=== PATIENT | female | born 1930 | race Caucasian/White ===

== ENCOUNTER 2018-11-27 04:35 | Inpatient (IN) | payer MEDICARE, BC ==
[2018-11-27] MEDS ORDERED: Aspirin 81 MG Tab.Chew PO ONE (05:18)
--- NOTE | 2018-11-27 05:49 | EDM.PDOC ---
ED HPI GENERAL MEDICAL PROBLEM - General Chief Complaint: Chest Pain Stated Complaint: [facility] Time Seen by Provider: 11/27/18 04:36 - History of Present Illness INITIAL COMMENTS - FREE TEXT/NARRATIVE: 88-year-old female brought in by EMS with chest pain. This started earlier this evening exact onset time is uncertain as the patient is pretty advanced dementia. She was found to be very hypertensive by EMS with systolics over 200 she was given Ativan is exhibiting a lytic her chest pain got better and her blood pressure started to come down nausea improved and she quickly came to be her normal self again. Apparently she is having more episodes like this about a week ago she had a similar episode she had an extensive workup done in [place] during that workup discovered that her lung cancer and come back. 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 The patient lives independently but this is not going well and the family is actively pursuing assisted placement and care. - Related Data Allergies Allergy/AdvReac Type Severity Reaction Status Date / Time aspirin Allergy Cannot Verified 11/27/18 04:42 Remember Cephalosporins Allergy Hives Verified 11/27/18 04:42 Home Meds: Home Meds Apixaban [Eliquis] 5 mg PO DAILY 11/27/18 [History] Atenolol [Tenormin] 25 mg PO DAILY 11/27/18 [History] Bumetanide 1 mg PO DAILY 11/27/18 [History] Lisinopril 10 mg PO DAILY 11/27/18 [History] Past Medical History Cardiovascular History: Reports: Afib, Hypertension, [place] Respiratory History: Reports: Other (See Below) Other Respiratory History: Lung CA Psychiatric History: Reports: Dementia - Past Surgical History Cardiovascular Surgical History: Reports: Coronary Artery Stent Social & Family History - Tobacco Use Smoking Status *Q: Never Smoker - Caffeine Use Caffeine Use: Reports: None - Recreational Drug Use Recreational Drug Use: No ED ROS GENERAL - Review of Systems Review Of Systems: See Below Constitutional: Reports: No Symptoms HEENT: Reports: No Symptoms Respiratory: Reports: Other (She needs oxygen more frequently) Cardiovascular: Reports: Chest Pain (Chest pain seemed to improve after being treated for anxiety) GI/Abdominal: Reports: No Symptoms : Reports: No Symptoms ED EXAM, GENERAL - Physical Exam Exam: See Below Exam Limited By: No Limitations General Appearance: Alert, Other (She can answer some questions but indeed has some advanced dementia) Eye Exam: Bilateral Eye: EOMI, Normal Inspection Ears: Normal External Exam, Normal Canal, Hearing Grossly Normal, Normal TMs Throat/Mouth: Normal Inspection, Normal Lips, Normal Teeth, Normal Gums, Normal Oropharynx, Normal Voice, No Airway Compromise Head: Atraumatic Neck: Normal Inspection, Supple, Non-Tender, Full Range of Motion. No: Lymphadenopathy (L), Lymphadenopathy (R) Respiratory/Chest: No Respiratory Distress, Lungs Clear, Normal Breath Sounds Cardiovascular: Normal Peripheral Pulses, Regular Rate, Rhythm, No Edema GI/Abdominal: Normal Bowel Sounds, Soft, Non-Tender Back Exam: Normal Inspection. No: CVA Tenderness (L), CVA Tenderness (R) Extremities: Normal Inspection, Other (Get bilateral pitting edema) Neurological: Alert EKG INTERPRETATION EKG Date: 11/27/18 Rhythm: Other (She has frequent PACs otherwise in sinus rhythm) [place]: Normal P-Wave: Present QRS: LBBB ST-T: Other (Expected disconcordant changes) Comparison: Change From Previous EKG (Comparison tracings found in our records include stress test traces from 2014 since that time she has gone from what looks like interventricular conduction delay to left bundle branch block) Course - Vital Signs Last Recorded V/S: Last Vital Signs Temp 35.9 C 11/27/18 04:36 Pulse 71 11/27/18 04:36 Resp 19 11/27/18 04:36 BP 189/88 H 11/27/18 04:36 Pulse Ox 92 L 11/27/18 04:36 - Orders/Labs/Meds Orders: Active Orders 24 hr Category Date Time Status EKG Documentation Completion [RC] STAT Care 11/27/18 04:36 Active Chest 1V Frontal [CR] Stat Exams 11/27/18 04:36 Taken URINALYSIS W/MICROSCOPIC [UA W/MICROSCOPIC] [URIN] Stat Lab 11/27/18 04:36 Ordered Labs: Laboratory Tests 11/27/18 11/27/18 11/27/18 Range/Units 04:40 04:40 04:40 WBC 6.60 (3.98-10.04) K/mm3 RBC 4.69 (3.98-5.22) M/mm3 Hgb 13.6 (11.2-15.7) gm/L Hct 42.8 (34.1-44.9) % MCV 91.3 (79.4-94.8) fl MCH 29.0 (25.6-32.2) pg MCHC 31.8 L (32.2-35.5) g/dl RDW Std Deviation 49.5 H (36.4-46.3) fL Plt Count 190 (182-369) K/mm3 MPV 12.0 (9.4-12.3) fl Neutrophils % (Manual) 78 H (40-60) % Band Neutrophils % 0 (0-10) % Lymphocytes % (Manual) 11 L (20-40) % Atypical Lymphs % 0 % Monocytes % (Manual) 4 (2-10) % Eosinophils % (Manual) 5 (0.7-5.8) % Basophils % (Manual) 2 H (0.1-1.2) Platelet Estimate Adequate Plt Morphology Comment Normal Hypochromasia 1+ slight Anisocytosis 1+ slight Ovalocytes 1+ slight RBC Morph Comment Not Reportable PT 11.7 (9.5-12.1) SECONDS INR 1.07 APTT 25 (24-31) SECONDS Sodium 142 (136-145) mEq/L Potassium 3.0 L (3.5-5.1) mEq/L Chloride 102 (98-107) mEq/L Carbon Dioxide 29 (21-32) mEq/L Anion Gap 14.0 (5-15) BUN 19 H (7-18) mg/dL Creatinine 1.2 H (0.55-1.02) mg/dL Est Cr Clr Drug Dosing 28.60 mL/min Estimated GFR (MDRD) 42 (>60) mL/min BUN/Creatinine Ratio 15.8 (14-18) Glucose 156 H (83-115) mg/dL Calcium 8.3 L (8.5-10.1) mg/dL Total Bilirubin 0.6 (0.2-1.0) mg/dL AST 29 (15-37) U/L ALT 53 (14-59) U/L Alkaline Phosphatase 157 H (46-116) U/L Troponin I 0.031 (0.00-0.056) ng/mL Total Protein 6.6 (6.4-8.2) g/dl Albumin 3.5 (3.4-5.0) g/dl Globulin 3.1 gm/dL Albumin/Globulin Ratio 1.1 (1-2) Meds: Medications Discontinued Medications Generic Name Dose Route Start Last Admin Trade Name Marta PRN Reason Stop Dose Admin Aspirin 324 mg 11/27/18 05:18 11/27/18 05:23 Aspirin PO 11/27/18 05:19 Not Given ONETIME ONE - Re-Assessments/Exams Free Text/Narrative Re-Assessment/Exam: 11/27/18 05:36 Discussion with family members about care plan she is DNR it looks like her lung cancer is back they do not wish to pursue treatment for this. If she has something going on with her heart they do not wish to pursue any aggressive management for this, such as going to [facility] or having any invasive procedures done. Primary efforts should be to keep her comfortable if something can be treated medically with meds that would be okay laboratory evaluation is nondiagnostic thus her her troponin is 0.31 chest x-ray, portable, shows upper segmental mass in the right lower lobe left shows small to moderate effusion she has some cardiomegaly noted. With her initial chief complaint involving chest pain she was not given aspirin due to aspirin allergies. 11/27/18 06:42 The cause of her chest pain is not clearly identifiable. We don't have complete center records on her she had a stress test done here 2013 compared to those elements she's now developed what looks like a left bundle branch block. She's been having these intermittent episodes of chest discomfort perhaps related to anxiety but this isn't certain and her blood pressure was very escalated when EMS picked her up this morning the patient is having worsening dementia and she lives alone she has good family support however none of her family members live close to her. Discussed situation with Dr. Cohen patient will be brought in for further evaluation. Departure - Departure Time of Disposition: 06:51 Disposition: Admitted As Inpatient 65 Clinical Impression: Chest pain, HTN (hypertension), Dementia Referrals: PCP,Not In Area [Primary Care Provider] - - My Orders Last 24 Hours: My Active Orders 11/27/18 04:36 EKG Documentation Completion [RC] STAT Chest 1V Frontal [CR] Stat URINALYSIS W/MICROSCOPIC [UA W/MICROSCOPIC] [URIN] Stat - Assessment/Plan Last 24 Hours: My Active Orders 11/27/18 04:36 EKG Documentation Completion [RC] STAT Chest 1V Frontal [CR] Stat URINALYSIS W/MICROSCOPIC [UA W/MICROSCOPIC] [URIN] Stat
[2018-11-27] MEDS: Potassium Chloride 10 MEQ in Premix Bag 1 BAG IV SCH ×4 (08:04→11:42)
[2018-11-27] MEDS ORDERED: Atenolol 25 MG Tab PO SCH (09:30)
[2018-11-27] MEDS ORDERED: Lisinopril 10 MG Tab PO SCH (09:30)
--- NOTE | 2018-11-27 10:41 | PCM.HP ---
H&P History of Present Illness - General Date of Service: 11/27/18 Admit Problem/Dx: Admission Diagnosis/Problem Admission Diagnosis/Problem Chest pain Source of Information: Patient, Family, Provider - History of Present Illness Initial Comments - Free Text/Narative: This 88-year-old female admitted through the emergency room and brought to the emergency room by EMS. Last night she called her daughter and told her that she was feeling sick and that she had vomited. Patient was having anxiety and sick feeling in her head. EMS was called and she was found to be hypertensive with systolic over 200. She was complaining of chest discomfort at that time and anxiety was thought to be part of the cause and she was given Ativan by EMS in route. This did help her chest pain and her blood pressure improved somewhat. On arrival to the emergency room workup was performed and troponins were negative. Apparently she had a similar episode a couple of weeks ago had a full cardiac workup. She has had episodes of low O2, but unknown how low. Patient has a history of lung cancer and recently had a CT angiogram performed. It appears her lung cancer has recurred. Patient does not want anything done about recurrence of her lung cancer and does not want any aggressive treatment for heart disease. She has a history of one stent 20 years ago. Also, her primary care provider has been encouraging family to look into long-term care for her. On she was going to move to a senior care in [place]. Because of the patient's worsening anxiety he did recently increase her lorazepam from 0.25 mg twice a day to 3 times a day. The evening pills seem to cause her to fall, therefore family stopped the evening pill and she has had no more falls since then. Here she was found to have a low potassium of 3.0. Patient has a history of paroxysmal A. fib, hypertension, congestive heart failure, anxiety, and dementia. - Related Data Allergies/Adverse Reactions: Allergies Allergy/AdvReac Type Severity Reaction Status Date / Time Cephalosporins Allergy Hives Verified 11/27/18 08:10 Home Medications: Home Meds Acetaminophen/traMADol [Ultracet] 1 tab PO BID 11/27/18 [History] Apixaban [Eliquis] 2.5 mg PO BID 11/27/18 [History] Aspirin 81 mg PO BEDTIME 11/27/18 [History] Atenolol [Tenormin] 50 mg PO DAILY 11/27/18 [History] Bumetanide 0.5 mg PO DAILY 11/27/18 [History] [place]/Mag Cit/Pass Flw/Valer [Myocalm] 1 tab PO BEDTIME 11/27/18 [History] LORazepam 0.25 mg PO TID 11/27/18 [History] Lisinopril 40 mg PO BEDTIME 11/27/18 [History] Loratadine 10 mg PO DAILY PRN 11/27/18 [History] Magnesium 100 mg PO DAILY 11/27/18 [History] Non-Formulary Medication [NF Drug] 2,181 mg PO TID 11/27/18 [History] Omeprazole 20 mg PO DAILY 11/27/18 [History] Sertraline HCl 100 mg PO DAILY 11/27/18 [History] Triamcinolone Acetonide [Nasacort] 1 spray YESENIA BID 11/27/18 [History] Triamcinolone Acetonide [Triamcinolone Acetonide 0.1% Crm] 1 applic TOP BID [History] Past Medical History Cardiovascular History: Reports: Afib, Hypertension, [place] Other Cardiovascular History: cannot update completely-family unaware of past medical hx Respiratory History: Reports: Other (See Below) Other Respiratory History: Lung CA. --patient confused/disoriented. family unaware of medical hx Psychiatric History: Reports: Dementia Other Psychiatric History: fam states patient has dementia - Past Surgical History Cardiovascular Surgical History: Reports: Coronary Artery Stent Social & Family History - Family History Family Medical History: Noncontributory - Tobacco Use Smoking Status *Q: Never Smoker - Caffeine Use Caffeine Use: Reports: Soda - Recreational Drug Use Recreational Drug Use: No H&P Review of Systems - Review of Systems: Review Of Systems: ROS reveals no pertinent complaints other than HPI. Exam - Exam Exam: See Below - Vital Signs Vital Signs: Last Vital Signs Temp 97.9 F 11/27/18 07:43 Pulse 73 11/27/18 07:43 Resp 20 11/27/18 07:43 BP 144/92 H 11/27/18 09:43 Pulse Ox 89 L 11/27/18 07:43 Weight: 165 lb 3.2 oz - Exam Quality Assessment: No: Supplemental Oxygen General: No: Alert, Oriented HEENT: Conjunctiva Clear, Mucosa Moist & [place], Posterior Pharynx Clear Neck: Supple, Trachea Midline Lungs: Normal Respiratory Effort, Rales Cardiovascular: Regular Rate, Regular Rhythm GI/Abdominal Exam: Normal Bowel Sounds, Soft, Non-Tender, No Organomegaly, No Distention Extremities: Non-Tender, Pedal Edema. No: Increased Warmth Skin: Warm, Intact Neuro Extensive - Mental Status: Disorientation to Place, Disorientation to Time , Memory Loss-Recent Events, Slow Response to Commands. No: Disorientation to Person - Patient Data Lab Results Last 24 hrs: Laboratory Results - last 24 hr 11/27/18 11/27/18 11/27/18 Range/Units 04:40 04:40 04:40 WBC 6.60 (3.98-10.04) K/mm3 RBC 4.69 (3.98-5.22) M/mm3 Hgb 13.6 (11.2-15.7) gm/L Hct 42.8 (34.1-44.9) % MCV 91.3 (79.4-94.8) fl MCH 29.0 (25.6-32.2) pg MCHC 31.8 L (32.2-35.5) g/dl RDW Std Deviation 49.5 H (36.4-46.3) fL Plt Count 190 (182-369) K/mm3 MPV 12.0 (9.4-12.3) fl Neutrophils % (Manual) 78 H (40-60) % Band Neutrophils % 0 (0-10) % Lymphocytes % (Manual) 11 L (20-40) % Atypical Lymphs % 0 % Monocytes % (Manual) 4 (2-10) % Eosinophils % (Manual) 5 (0.7-5.8) % Basophils % (Manual) 2 H (0.1-1.2) Platelet Estimate Adequate Plt Morphology Comment Normal Hypochromasia 1+ slight Anisocytosis 1+ slight Ovalocytes 1+ slight RBC Morph Comment Not Reportable PT 11.7 (9.5-12.1) SECONDS INR 1.07 APTT 25 (24-31) SECONDS Sodium 142 (136-145) mEq/L Potassium 3.0 L (3.5-5.1) mEq/L Chloride 102 (98-107) mEq/L Carbon Dioxide 29 (21-32) mEq/L Anion Gap 14.0 (5-15) BUN 19 H (7-18) mg/dL Creatinine 1.2 H (0.55-1.02) mg/dL Est Cr Clr Drug Dosing 28.60 mL/min Estimated GFR (MDRD) 42 (>60) mL/min BUN/Creatinine Ratio 15.8 (14-18) Glucose 156 H (83-115) mg/dL Calcium 8.3 L (8.5-10.1) mg/dL Total Bilirubin 0.6 (0.2-1.0) mg/dL AST 29 (15-37) U/L ALT 53 (14-59) U/L Alkaline Phosphatase 157 H (46-116) U/L Troponin I 0.031 (0.00-0.056) ng/mL Total Protein 6.6 (6.4-8.2) g/dl Albumin 3.5 (3.4-5.0) g/dl Globulin 3.1 gm/dL Albumin/Globulin Ratio 1.1 (1-2) Urine Color (Yellow) Urine Appearance (Clear) Urine pH (5.0-8.0) Ur Specific [place] (1.005-1.030) Urine Protein (Negative) Urine Glucose (UA) (Negative) Urine Ketones (Negative) Urine Occult Blood (Negative) Urine Nitrite (Negative) Urine Bilirubin (Negative) Urine Urobilinogen (0.2-1.0) Ur Leukocyte Esterase (Negative) Urine RBC (0-5) /hpf Urine WBC (0-5) /hpf Ur Epithelial Cells (0-5) /hpf Urine Bacteria (FEW) /hpf Urine Mucus (FEW) /hpf 11/27/18 Range/Units 05:38 WBC (3.98-10.04) K/mm3 RBC (3.98-5.22) M/mm3 Hgb (11.2-15.7) gm/L Hct (34.1-44.9) % MCV (79.4-94.8) fl MCH (25.6-32.2) pg MCHC (32.2-35.5) g/dl RDW Std Deviation (36.4-46.3) fL Plt Count (182-369) K/mm3 MPV (9.4-12.3) fl Neutrophils % (Manual) (40-60) % Band Neutrophils % (0-10) % Lymphocytes % (Manual) (20-40) % Atypical Lymphs % % Monocytes % (Manual) (2-10) % Eosinophils % (Manual) (0.7-5.8) % Basophils % (Manual) (0.1-1.2) Platelet Estimate Plt Morphology Comment Hypochromasia Anisocytosis Ovalocytes RBC Morph Comment PT (9.5-12.1) SECONDS INR APTT (24-31) SECONDS Sodium (136-145) mEq/L Potassium (3.5-5.1) mEq/L Chloride (98-107) mEq/L Carbon Dioxide (21-32) mEq/L Anion Gap (5-15) BUN (7-18) mg/dL Creatinine (0.55-1.02) mg/dL Est Cr Clr Drug Dosing mL/min Estimated GFR (MDRD) (>60) mL/min BUN/Creatinine Ratio (14-18) Glucose (83-115) mg/dL Calcium (8.5-10.1) mg/dL Total Bilirubin (0.2-1.0) mg/dL AST (15-37) U/L ALT (14-59) U/L Alkaline Phosphatase (46-116) U/L Troponin I (0.00-0.056) ng/mL Total Protein (6.4-8.2) g/dl Albumin (3.4-5.0) g/dl Globulin gm/dL Albumin/Globulin Ratio (1-2) Urine Color Yellow (Yellow) Urine Appearance Clear (Clear) Urine pH 7.0 (5.0-8.0) Ur Specific [place] 1.020 (1.005-1.030) Urine Protein 2+ H (Negative) Urine Glucose (UA) Trace H (Negative) Urine Ketones Trace H (Negative) Urine Occult Blood Trace-intact H (Negative) Urine Nitrite Negative (Negative) Urine Bilirubin Negative (Negative) Urine Urobilinogen 0.2 (0.2-1.0) Ur Leukocyte Esterase Negative (Negative) Urine RBC 0-5 (0-5) /hpf Urine WBC 0-5 (0-5) /hpf Ur Epithelial Cells Not seen (0-5) /hpf Urine Bacteria Not seen (FEW) /hpf Urine Mucus Not seen (FEW) /hpf Result Diagrams: 11/27/18 04:40 11/27/18 04:40 - Problem List (1) CHF (congestive heart failure) SNOMED Code(s): 61176113 ICD Code: I50.9 - HEART FAILURE, UNSPECIFIED Status: Acute Current Visit : Yes (2) Hypokalemia SNOMED Code(s): 91664348 ICD Code: E87.6 - HYPOKALEMIA Status: Acute Current Visit: Yes (3) Anxiety SNOMED Code(s): 11538745 ICD Code: F41.9 - ANXIETY DISORDER, UNSPECIFIED Status: Acute Current Visit: Yes (4) Dementia SNOMED Code(s): 72977533 ICD Code: F03.90 - UNSPECIFIED DEMENTIA WITHOUT BEHAVIORAL DISTURBANCE Status: Acute Current Visit: Yes (5) HTN (hypertension) SNOMED Code(s): 05943676 ICD Code: I10 - ESSENTIAL (PRIMARY) HYPERTENSION Status: Acute Current Visit: Yes Problem List Initiated/Reviewed/Updated: Yes Orders Last 24hrs: Active Orders 24 hr Category Date Time Status Admission Status [Patient Status] [ADT] Routine ADT 11/27/18 06:48 Active EKG Documentation Completion [RC] STAT Care 11/27/18 04:36 Active Oxygen Therapy [RC] PRN Care 11/27/18 10:28 Ordered Up With Assistance [RC] ASDIRECTED Care 11/27/18 09:34 Active VTE/DVT Education [RC] PER UNIT ROUTINE Care 11/27/18 10:28 Ordered Vital Signs [RC] Q8H Care 11/27/18 10:28 Ordered Consult to Case Management/Rn Surgical [CONS] Cons 11/27/18 10:28 Ordered Routine OT Evaluation and Treatment [CONS] Routine Cons 11/27/18 10:32 Ordered PT Evaluation and Treatment [CONS] Routine Cons 11/27/18 10:32 Ordered Heart Healthy Diet [DIET] Diet 11/27/18 Lunch Active Chest 1V Frontal [CR] Stat Exams 11/27/18 04:36 Taken CBC WITH AUTO DIFF [HEME] AM Lab 11/28/18 05:11 Ordered COMPREHENSIVE METABOLIC PN,CMP [CHEM] AM Lab 11/28/18 05:11 Ordered MAGNESIUM [CHEM] AM Lab 11/28/18 05:11 Ordered Acetaminophen [Tylenol] Med 11/27/18 10:28 Ordered 650 mg PO Q4H PRN Apixaban [Eliquis] Med 11/27/18 21:00 Ordered 2.5 mg PO BID Aspirin Med 11/27/18 21:00 Ordered 81 mg PO BEDTIME Atenolol [Tenormin] Med 11/27/18 10:30 Ordered 50 mg PO DAILY Bumetanide [Bumex] Med 11/28/18 09:00 Ordered 0.5 mg PO DAILY LORazepam [Ativan] Med 11/27/18 10:30 Ordered 0.25 mg PO BID Lisinopril [Prinivil] Med 11/27/18 09:30 Active 10 mg PO DAILY Loratadine [Claritin] Med 11/27/18 10:16 Ordered 10 mg PO DAILY PRN Omeprazole [Omeprazole] Med 11/28/18 09:00 Ordered 20 mg PO DAILY Potassium Chloride [KCl 10 MEQ in Water 100 ML] 10 meq Med 11/27/18 07:30 Active Premix Bag 1 bag IV Q1H Potassium Chloride [Klor-Con 10] Med 11/27/18 21:00 Ordered 10 meq PO BEDTIME Sertraline HCl Med 11/28/18 09:00 Ordered 100 mg PO DAILY Triamcinolone Acetonide [Nasacort] Med 11/27/18 21:00 Ordered 1 spray YESENIA BID Triamcinolone Acetonide [Triamcinolone Acetonide 0.1% Med 11/27/18 21:00 Ordered Crm] 1 applic TOP BID Resuscitation Status Routine Resus Stat 11/27/18 08:13 Ordered Medication Orders Acetaminophen (Tylenol) 650 mg PO Q4H PRN PRN Reason: Pain (Mild 1-3)/fever Apixaban (Eliquis) 2.5 mg PO BID [facility] Aspirin (Aspirin) 81 mg PO BEDTIME PARAG Atenolol (Tenormin) 50 mg PO DAILY PARAG Bumetanide (Bumex) 0.5 mg PO DAILY PARAG Potassium Chloride 10 meq/ (Premix) 100 mls @ 100 mls/hr IV Q1H PARAG Stop: 11/27/18 11:29 Last Admin: 11/27/18 10:22 Dose: 100 mls/hr Infusion: 11/27/18 10:20 Dose: 100 mls/hr Admin: 11/27/18 09:20 Dose: 100 mls/hr Infusion: 11/27/18 09:04 Dose: 100 mls/hr Admin: 11/27/18 08:04 Dose: 100 mls/hr Lisinopril (Prinivil) 10 mg PO DAILY [facility] Last Admin: 11/27/18 09:43 Dose: 10 mg Loratadine (Claritin) 10 mg PO DAILY PRN PRN Reason: chronic rhinitis Lorazepam (Ativan) 0.25 mg PO BID@0800,1200 [facility] Non-Formulary Medication (Triamcinolone Acetonide [Nasacort]) 1 spray YESENIA BID [facility] Pantoprazole Sodium (Protonix) 40 mg PO DAILY@0700 [facility] Potassium Chloride (Klor-Con 10) 10 meq PO BEDTIME [facility] Sertraline HCl (Zoloft) 100 mg PO DAILY [facility] Triamcinolone Acetonide (Triamcinolone Acetonide 0.1% Crm) 0 gm TOP BID [facility] Assessment/Plan Comment:: Hypertensive emergency * Appears patient had a significantly elevated blood pressure on arrival of EMS that may have been causing some altered mental status. * There is hard to determine because of the Ativan her current mental status. We will continue to follow closely. * Family does not want aggressive management at this time, therefore we'll hold off on MRI of the brain. * Patient has no focal deficits and is able to swallow pills and clear liquids. * Restart home meds and even before her home meds were given her blood pressure was down to 140 systolic Congestive heart failure * Ejection fraction from myocardial perfusion scan in 2013 was 30%. * Continue Bumex, lisinopril, and atenolol. Dementia * Patient clearly has worsening of her dementia. * She will need senior care placement. * Counseled the family that she may have difficulty in the evening with sundowning. Anxiety * Continue sertraline 100 mg a day. * Continue lorazepam 0.25 mg at breakfast and lunch Paroxysmal A. fib * Continue beta carmen and Eliquis * ECG shows normal sinus rhythm currently PT, OT, and discharge planning Length of stay anticipated 3 days CODE STATUS: DNR/DNI VTE prophylaxis with Eliquis
[2018-11-27] MEDS: LORazepam 0.5 MG Tab PO SCH (11:21)
[2018-11-27] MEDS: Atenolol 50 MG Tab PO SCH (11:31)
[2018-11-27] MEDS: Acetaminophen 325 MG Tab PO PRN ×3 (12:23→21:11)
[2018-11-27] MEDS: Loratadine 10 MG Tab PO PRN (12:24)
[2018-11-27] MEDS: Apixaban 5 MG Tab PO SCH (21:09)
[2018-11-27] MEDS: Potassium Chloride 10 MEQ Tab.ER PO SCH (21:10)
[2018-11-27] MEDS: Fluticasone Propionate Nasal Spray 16 GM Bottle NAS SCH (21:10)
[2018-11-27] MEDS: Melatonin 3 MG Tab PO SCH (21:10)
[2018-11-27] MEDS ORDERED: Lisinopril 10 MG Tab PO ONE (21:10)
[2018-11-27] MEDS: Aspirin 81 MG Tab.Chew PO SCH (21:11)
[2018-11-27] MEDS: Triamcinolone Acetonide 0.1% Crm 15 GM Tube TOP SCH (21:15)
[2018-11-28] MEDS: Pantoprazole 40 MG Tab.CR PO SCH ×2 (05:45→06:20)
--- NOTE | 2018-11-28 07:01 | PCM.PN ---
- General Info Date of Service: 11/28/18 Admission Dx/Problem (Free Text): Admission Diagnosis/Problem Admission Diagnosis/Problem Chest pain Subjective Update: 11/28/18: In to see Gunjan. She is lying in bed. She reports she feels pretty good. She is pleasantly confused. She is onboard with the plan for discharge to [place] and does tell me this when i was asking about needing more help at home. Her magnesium was low and was supplemented. No other nursing or patient concerns. Functional Status: Reports: Pain Controlled, Tolerating Diet, Ambulating, Urinating. Denies: New Symptoms - Review of Systems General: Reports: No Symptoms. Denies: Fever, Weakness, Fatigue, Malaise HEENT: Reports: No Symptoms. Denies: Headaches, Sore Throat Pulmonary: Reports: No Symptoms. Denies: Shortness of Breath, Pleuritic Chest Pain, Cough, Hemoptysis, Wheezing Cardiovascular: Reports: No Symptoms, Edema. Denies: Chest Pain, Palpitations, Dyspnea on Exertion Gastrointestinal: Reports: No Symptoms. Denies: Abdominal Pain, Constipation, Diarrhea, Nausea, Vomiting Genitourinary: Reports: No Symptoms. Denies: Pain Musculoskeletal: Reports: No Symptoms Skin: Reports: No Symptoms Neurological: Reports: Confusion (baseline ) Psychiatric: Reports: No Symptoms - Patient Data Vitals - Most Recent: Last Vital Signs Temp 98.2 F 11/28/18 05:48 Pulse 59 L 11/28/18 05:48 Resp 12 11/28/18 05:48 BP 177/83 H 11/28/18 05:48 Pulse Ox 95 11/28/18 05:48 Weight - Most Recent: 166 lb 1.6 oz I&O - Last 24 Hours: Intake & Output 11/27/18 11/28/18 11/28/18 22:59 06:59 14:59 Intake Total 1200 500 Output Total 275 475 Balance 925 25 Lab Results Last 24 Hours: Laboratory Results - last 24 hr 11/28/18 11/28/18 Range/Units 04:50 04:50 WBC 5.37 (3.98-10.04) K/mm3 RBC 4.34 (3.98-5.22) M/mm3 Hgb 12.7 (11.2-15.7) gm/L Hct 39.5 (34.1-44.9) % MCV 91.0 (79.4-94.8) fl MCH 29.3 (25.6-32.2) pg MCHC 32.2 (32.2-35.5) g/dl RDW Std Deviation 49.2 H (36.4-46.3) fL Plt Count 196 (182-369) K/mm3 MPV 12.2 (9.4-12.3) fl Neut % (Auto) 62.7 (34.0-71.1) % Lymph % (Auto) 25.5 (19.3-51.7) % Saline % (Auto) 9.9 (4.7-12.5) % Eos % (Auto) 1.5 (0.7-5.8) Baso % (Auto) 0.2 (0.1-1.2) % Neut # (Auto) 3.37 (1.56-6.13) K/mm3 Lymph # (Auto) 1.37 (1.18-3.74) K/mm3 Saline # (Auto) 0.53 H (0.24-0.36) K/mm3 Eos # (Auto) 0.08 (0.04-0.36) K/mm3 Baso # (Auto) 0.01 (0.01-0.08) K/mm3 Sodium 140 (136-145) mEq/L Potassium 3.5 (3.5-5.1) mEq/L Chloride 103 (98-107) mEq/L Carbon Dioxide 28 (21-32) mEq/L Anion Gap 12.5 (5-15) BUN 22 H (7-18) mg/dL Creatinine 1.1 H (0.55-1.02) mg/dL Est Cr Clr Drug Dosing 24.90 mL/min Estimated GFR (MDRD) 47 (>60) mL/min BUN/Creatinine Ratio 20.0 H (14-18) Glucose 92 (83-115) mg/dL Calcium 8.1 L (8.5-10.1) mg/dL Magnesium 1.5 L (1.8-2.4) mg/dl Total Bilirubin 0.7 (0.2-1.0) mg/dL AST 35 (15-37) U/L ALT 55 (14-59) U/L Alkaline Phosphatase 133 H (46-116) U/L Total Protein 5.5 L (6.4-8.2) g/dl Albumin 2.9 L (3.4-5.0) g/dl Globulin 2.6 gm/dL Albumin/Globulin Ratio 1.1 (1-2) Med Orders - Current: Current Medications Acetaminophen (Tylenol) 650 mg PO Q4H PRN PRN Reason: Pain (Mild 1-3)/fever Last Admin: 11/27/18 21:11 Dose: 650 mg Apixaban (Eliquis) 2.5 mg PO BID [facility] Last Admin: 11/27/18 21:09 Dose: 2.5 mg Aspirin (Aspirin) 81 mg PO BEDTIME [facility] Last Admin: 11/27/18 21:11 Dose: 81 mg Atenolol (Tenormin) 50 mg PO DAILY [facility] Last Admin: 11/27/18 11:31 Dose: 50 mg Bumetanide (Bumex) 0.5 mg PO DAILY [facility] Fluticasone Propionate (Flonase) 0 gm [place]ENIA BID [facility] Last Admin: 11/27/18 21:10 Dose: Not Given Lisinopril (Prinivil) 20 mg PO DAILY [facility] Loratadine (Claritin) 10 mg PO DAILY PRN PRN Reason: chronic rhinitis Last Admin: 11/27/18 12:24 Dose: 10 mg Lorazepam (Ativan) 0.25 mg PO BID@0800,1200 [facility] Last Admin: 11/27/18 11:21 Dose: Not Given Melatonin (Melatonin) 3 mg PO BEDTIME [facility] Last Admin: 11/27/18 21:10 Dose: 3 mg Pantoprazole Sodium (Protonix) 40 mg PO DAILY@0700 [facility] Last Admin: 11/28/18 06:20 Dose: Not Given Potassium Chloride (Klor-Con 10) 10 meq PO BEDTIME [facility] Last Admin: 11/27/18 21:10 Dose: 10 meq Sertraline HCl (Zoloft) 100 mg PO DAILY [facility] Triamcinolone Acetonide (Triamcinolone Acetonide 0.1% Crm) 0 gm TOP BID [facility] Last Admin: 11/27/18 21:15 Dose: Not Given Discontinued Medications Aspirin (Aspirin) 324 mg PO ONETIME ONE Stop: 11/27/18 05:19 Last Admin: 11/27/18 05:23 Dose: Not Given Atenolol (Tenormin) 25 mg PO DAILY [facility] Last Admin: 11/27/18 09:46 Dose: Not Given Potassium Chloride 10 meq/ (Premix) 100 mls @ 100 mls/hr IV Q1H [facility] Stop: 11/27/18 11:29 Last Admin: 11/27/18 11:42 Dose: 100 mls/hr Lisinopril (Prinivil) 10 mg PO DAILY [facility] Last Admin: 11/27/18 09:43 Dose: 10 mg Lisinopril (Prinivil) 10 mg PO ONETIME ONE Stop: 11/27/18 21:11 Last Admin: 11/27/18 21:54 Dose: 10 mg - Exam Quality Assessment: DVT Prophylaxis General: Alert, Cooperative, No Acute Distress. No: Oriented HEENT: Pupils Equal, Pupils Reactive, EOMI, Mucous Membr. Moist/[place] Neck: Supple, Trachea Midline Lungs: Clear to Auscultation, Normal Respiratory Effort Cardiovascular: Regular Rate, Regular Rhythm GI/Abdominal Exam: Normal Bowel Sounds, Soft, Non-Tender, No Distention, No Abnormal Bruit (Female) Exam: Deferred Back Exam: Normal Inspection, Full Range of Motion Extremities: Normal Inspection, Normal Range of Motion, Non-Tender, Normal Capillary Refill, Pedal Edema Peripheral Pulses: 2+: Radial (L), Radial (R), Dorsalis Pedis (L), Dorsalis Pedis (R) Skin: Warm, Dry, Intact Neurological: No New Focal Deficit Psy/Mental Status: Alert - Problem List & Annotations (1) Hypomagnesemia SNOMED Code(s): 557863529 Code(s): E83.42 - HYPOMAGNESEMIA Status: Acute Priority: High Current Visit: Yes (2) Anxiety SNOMED Code(s): 67290942 Code(s): F41.9 - ANXIETY DISORDER, UNSPECIFIED Status: Acute Priority: High Current Visit: Yes (3) CHF (congestive heart failure) SNOMED Code(s): 68215284 Code(s): I50.9 - HEART FAILURE, UNSPECIFIED Status: Acute Priority: High Current Visit: Yes Qualifiers: Heart failure type: unspecified Heart failure chronicity: unspecified Qualified Code(s): I50.9 - Heart failure, unspecified (4) Chest pain SNOMED Code(s): 28078283 Code(s): R07.9 - CHEST PAIN, UNSPECIFIED Status: Acute Priority: High Current Visit: Yes Qualifiers: Chest pain type: unspecified Qualified Code(s): R07.9 - Chest pain, unspecified (5) Dementia SNOMED Code(s): 82298803 Code(s): F03.90 - UNSPECIFIED DEMENTIA WITHOUT BEHAVIORAL DISTURBANCE Status: Chronic Priority: Medium Current Visit: Yes Qualifiers: Dementia type: unspecified type Dementia behavioral disturbance: without behavioral disturbance Qualified Code(s): F03.90 - Unspecified dementia without behavioral disturbance (6) HTN (hypertension) SNOMED Code(s): 96145047 Code(s): I10 - ESSENTIAL (PRIMARY) HYPERTENSION Status: Chronic Priority : High Current Visit: Yes Qualifiers: Hypertension type: unspecified Qualified Code(s): I10 - Essential (primary ) hypertension (7) Hypokalemia SNOMED Code(s): 46181877 Code(s): E87.6 - HYPOKALEMIA Status: Acute Priority: Medium Current Visit: Yes - Problem List Review Problem List Initiated/Reviewed/Updated: Yes - Plan Plan:: Hypertensive emergency * Appears patient had a significantly elevated blood pressure on arrival of EMS that may have been causing some altered mental status. * There is hard to determine because of the Ativan her current mental status. We will continue to follow closely. * Family does not want aggressive management at this time, therefore we'll hold off on MRI of the brain. * Patient has no focal deficits and is able to swallow pills and clear liquids. * Restart home meds and even before her home meds were given her blood pressure was down to 140 systolic * Increased lisinopril dosing Congestive heart failure * Ejection fraction from myocardial perfusion scan in 2013 was 30%. * Continue Bumex, lisinopril, and atenolol. Dementia * Patient clearly has worsening of her dementia. * She will need [facility] placement. * Counseled the family that she may have difficulty in the evening with . Anxiety * Continue sertraline 100 mg a day. * Continue lorazepam 0.25 mg at breakfast and lunch Paroxysmal A. fib * Continue beta carmen and Eliquis * ECG continues to show normal sinus rhythm PT, OT, and discharge planning Length of stay anticipated 3 days CODE STATUS: DNR/DNI VTE prophylaxis with Eliquis
[2018-11-28] MEDS ORDERED: Magnesium Sulfate/Water 2 GM in Premix Bag 1 BAG IV ONE (08:06)
[2018-11-28] MEDS: LORazepam 0.5 MG Tab PO SCH ×2 (09:17→11:45)
[2018-11-28] MEDS: Sertraline 50 MG Tab PO SCH (09:17)
[2018-11-28] MEDS: Bumetanide 1 MG Tab PO SCH (09:17)
[2018-11-28] MEDS: Apixaban 5 MG Tab PO SCH ×2 (09:18→20:03)
[2018-11-28] MEDS: Fluticasone Propionate Nasal Spray 16 GM Bottle NAS SCH ×2 (09:20→20:04)
[2018-11-28] MEDS: Atenolol 50 MG Tab PO SCH (09:21)
[2018-11-28] MEDS: Lisinopril 20 MG Tab PO SCH (09:21)
[2018-11-28] MEDS: Acetaminophen 325 MG Tab PO PRN ×2 (09:27→20:01)
--- NOTE | 2018-11-28 11:01 | CR ---
Chest: Portable view of the chest was obtained. Comparison: Prior CT chest of 05/10/17, previous chest x-ray of 10/22/12 is also available. Heart is slightly enlarged. Atherosclerotic calcification is noted within the thoracic aorta. Scarring is noted adjacent to the right minor fissure. Vague parenchymal density is seen below the minor fissure presumably representing previous mass seen on chest CT which appears to have decreased in size. Perihilar markings are noted on the right side to be increased and uncertain if this represents scarring from previous lung cancer treatment or represents asymmetric bronchitis. Left lung shows no acute change. Impression: 1. Decreased mass within the right lower chest from prior chest CT. 2. Increased perihilar markings on the right side, as mentioned above uncertain if this is due to scarring from previous lung cancer treatment or represents asymmetric right-sided bronchitis. 3. Mild cardiomegaly and other incidental findings. Diagnostic code #3
[2018-11-28] MEDS ORDERED: hydrALAZINE 20 MG/ML SDV IVPUSH ONE (11:40)
[2018-11-28] MEDS: Triamcinolone Acetonide 0.1% Crm 15 GM Tube TOP SCH ×2 (11:44→20:04)
[2018-11-28] MEDS: Melatonin 3 MG Tab PO SCH (20:01)
[2018-11-28] MEDS: Potassium Chloride 10 MEQ Tab.ER PO SCH (20:03)
[2018-11-28] MEDS: Aspirin 81 MG Tab.Chew PO SCH (20:03)
[2018-11-29] MEDS: Pantoprazole 40 MG Tab.CR PO SCH (06:51)
--- NOTE | 2018-11-29 08:37 | PCM.PN ---
- General Info Date of Service: 11/29/18 Admission Dx/Problem (Free Text): Admission Diagnosis/Problem Admission Diagnosis/Problem Chest pain Subjective Update: 11/28/18: In to see Gunjan. She is lying in bed. She reports she feels pretty good. She is pleasantly confused. She is onboard with the plan for discharge to [place] and does tell me this when i was asking about needing more help at home. Her magnesium was low and was supplemented. No other nursing or patient concerns. 11/29/18: In to see Gunjan. She is sitting up in the chair. Her confusion is much worse today but she is still very pleasant and able to be re-directed. Nursing reports she did not sleep much overnight. No nursing concerns. Her labs today are stable. She reports she feels weaker today than yesterday. PT reported similar patient concerns. She remains pain free. Hopeful for discharge tomorrow AM. Functional Status: Reports: Pain Controlled, Tolerating Diet, Ambulating, Urinating. Denies: New Symptoms - Review of Systems General: Reports: Weakness (per patient - worse today). Denies: Fever, Fatigue , Malaise, Chills HEENT: Reports: Headaches (very mild headache which her family reports is a chronic complaint for her. ). Denies: Sore Throat Pulmonary: Reports: No Symptoms. Denies: Shortness of Breath Cardiovascular: Reports: No Symptoms. Denies: Chest Pain, Palpitations, Dyspnea on Exertion, Edema Gastrointestinal: Reports: No Symptoms. Denies: Abdominal Pain, Constipation, Diarrhea, Nausea, Vomiting Genitourinary: Reports: No Symptoms. Denies: Pain Musculoskeletal: Reports: No Symptoms Skin: Reports: No Symptoms. Denies: Cyanosis Neurological: Reports: Confusion (worse today ), Difficulty Walking, Weakness. Denies: Change in Speech Psychiatric: Reports: No Symptoms - Patient Data Vitals - Most Recent: Last Vital Signs Temp 98.6 F 11/29/18 05:35 Pulse 70 11/29/18 05:35 Resp 18 11/29/18 05:35 BP 168/112 H 11/29/18 05:35 Pulse Ox 94 L 11/29/18 05:35 Weight - Most Recent: 166 lb 6.4 oz I&O - Last 24 Hours: Intake & Output 11/28/18 11/29/18 11/29/18 22:59 06:59 14:59 Intake Total 550 450 Output Total 400 500 Balance 150 -50 Lab Results Last 24 Hours: Laboratory Results - last 24 hr 11/29/18 Range/Units 04:40 Sodium 139 (136-145) mEq/L Potassium 3.5 (3.5-5.1) mEq/L Chloride 103 (98-107) mEq/L Carbon Dioxide 27 (21-32) mEq/L Anion Gap 12.5 (5-15) BUN 20 H (7-18) mg/dL Creatinine 1.0 (0.55-1.02) mg/dL Est Cr Clr Drug Dosing 27.39 mL/min Estimated GFR (MDRD) 52 (>60) mL/min BUN/Creatinine Ratio 20.0 H (14-18) Glucose 104 (83-115) mg/dL Calcium 8.4 L (8.5-10.1) mg/dL Magnesium 1.9 (1.8-2.4) mg/dl Med Orders - Current: Current Medications Acetaminophen (Tylenol) 650 mg PO Q4H PRN PRN Reason: Pain (Mild 1-3)/fever Last Admin: 11/28/18 20:01 Dose: 650 mg Amlodipine Besylate (Norvasc) 5 mg PO DAILY [facility] Apixaban (Eliquis) 2.5 mg PO BID [facility] Last Admin: 11/28/18 20:03 Dose: 2.5 mg Aspirin (Aspirin) 81 mg PO BEDTIME [facility] Last Admin: 11/28/18 20:03 Dose: 81 mg Atenolol (Tenormin) 50 mg PO DAILY [facility] Last Admin: 11/28/18 09:21 Dose: 50 mg Bumetanide (Bumex) 0.5 mg PO DAILY [facility] Last Admin: 11/28/18 09:17 Dose: 0.5 mg Fluticasone Propionate (Flonase) 0 gm [place]ENIA BID [facility] Last Admin: 11/28/18 20:04 Dose: Not Given Lisinopril (Prinivil) 20 mg PO DAILY [facility] Last Admin: 11/28/18 09:21 Dose: 20 mg Loratadine (Claritin) 10 mg PO DAILY PRN PRN Reason: chronic rhinitis Last Admin: 11/27/18 12:24 Dose: 10 mg Lorazepam (Ativan) 0.25 mg PO BID@0800,1200 [facility] Last Admin: 11/28/18 11:45 Dose: 0.25 mg Melatonin (Melatonin) 3 mg PO BEDTIME [facility] Last Admin: 11/28/18 20:01 Dose: 3 mg Pantoprazole Sodium (Protonix) 40 mg PO DAILY@0700 [facility] Last Admin: 11/29/18 06:51 Dose: 40 mg Potassium Chloride (Klor-Con 10) 10 meq PO BEDTIME [facility] Last Admin: 11/28/18 20:03 Dose: 10 meq Sertraline HCl (Zoloft) 100 mg PO DAILY [facility] Last Admin: 11/28/18 09:17 Dose: 100 mg Triamcinolone Acetonide (Triamcinolone Acetonide 0.1% Crm) 0 gm TOP BID [facility] Last Admin: 11/28/18 20:04 Dose: Not Given Discontinued Medications Aspirin (Aspirin) 324 mg PO ONETIME ONE Stop: 11/27/18 05:19 Last Admin: 11/27/18 05:23 Dose: Not Given Atenolol (Tenormin) 25 mg PO DAILY [facility] Last Admin: 11/27/18 09:46 Dose: Not Given Hydralazine HCl (Apresoline) 20 mg IVPUSH ONETIME ONE Stop: 11/28/18 11:41 Last Admin: 11/28/18 11:45 Dose: 20 mg Potassium Chloride 10 meq/ (Premix) 100 mls @ 100 mls/hr IV Q1H [facility] Stop: 11/27/18 11:29 Last Admin: 11/27/18 11:42 Dose: 100 mls/hr Magnesium Sulfate 2 gm/ Premix 50 mls @ 25 mls/hr IV ONETIME ONE Stop: 11/28/18 10:05 Last Admin: 11/28/18 09:17 Dose: 25 mls/hr Lisinopril (Prinivil) 10 mg PO DAILY [facility] Last Admin: 11/27/18 09:43 Dose: 10 mg Lisinopril (Prinivil) 10 mg PO ONETIME ONE Stop: 11/27/18 21:11 Last Admin: 11/27/18 21:54 Dose: 10 mg - Exam Quality Assessment: DVT Prophylaxis General: Alert, Cooperative, No Acute Distress. No: Oriented HEENT: Pupils Equal, Pupils Reactive, EOMI, Mucous Membr. Moist/[place] Neck: Supple, Trachea Midline Lungs: Clear to Auscultation, Normal Respiratory Effort Cardiovascular: Regular Rate, Regular Rhythm GI/Abdominal Exam: Normal Bowel Sounds, Soft, Non-Tender, No Organomegaly, No Distention (Female) Exam: Deferred Back Exam: Normal Inspection, Full Range of Motion Extremities: Normal Inspection, Normal Range of Motion, Non-Tender, No Pedal Edema, Normal Capillary Refill Peripheral Pulses: 2+: Radial (L), Radial (R), Dorsalis Pedis (L), Dorsalis Pedis (R) Skin: Warm, Dry, Intact Neurological: No New Focal Deficit Psy/Mental Status: Alert, Normal Affect, Normal Mood - Problem List & Annotations (1) Hypomagnesemia SNOMED Code(s): 834567059 Code(s): E83.42 - HYPOMAGNESEMIA Status: Acute Priority: High Current Visit: Yes (2) Anxiety SNOMED Code(s): 42972056 Code(s): F41.9 - ANXIETY DISORDER, UNSPECIFIED Status: Acute Priority: High Current Visit: Yes (3) CHF (congestive heart failure) SNOMED Code(s): 07481823 Code(s): I50.9 - HEART FAILURE, UNSPECIFIED Status: Acute Priority: High Current Visit: Yes Qualifiers: Heart failure type: unspecified Heart failure chronicity: unspecified Qualified Code(s): I50.9 - Heart failure, unspecified (4) Chest pain SNOMED Code(s): 21851221 Code(s): R07.9 - CHEST PAIN, UNSPECIFIED Status: Acute Priority: High Current Visit: Yes Qualifiers: Chest pain type: unspecified Qualified Code(s): R07.9 - Chest pain, unspecified (5) Dementia SNOMED Code(s): 69650159 Code(s): F03.90 - UNSPECIFIED DEMENTIA WITHOUT BEHAVIORAL DISTURBANCE Status: Chronic Priority: Medium Current Visit: Yes Qualifiers: Dementia type: unspecified type Dementia behavioral disturbance: without behavioral disturbance Qualified Code(s): F03.90 - Unspecified dementia without behavioral disturbance (6) HTN (hypertension) SNOMED Code(s): 07290401 Code(s): I10 - ESSENTIAL (PRIMARY) HYPERTENSION Status: Chronic Priority : High Current Visit: Yes Qualifiers: Hypertension type: unspecified Qualified Code(s): I10 - Essential (primary ) hypertension (7) Hypokalemia SNOMED Code(s): 25151307 Code(s): E87.6 - HYPOKALEMIA Status: Acute Priority: Medium Current Visit: Yes - Problem List Review Problem List Initiated/Reviewed/Updated: Yes - My Orders Last 24 Hours: My Active Orders 11/29/18 09:00 amLODIPine [Norvasc] 5 mg PO DAILY 11/30/18 05:11 BASIC METABOLIC PANEL,BMP [CHEM] AM MAGNESIUM [CHEM] AM 12/01/18 05:11 BASIC METABOLIC PANEL,BMP [CHEM] AM MAGNESIUM [CHEM] AM 12/02/18 05:11 BASIC METABOLIC PANEL,BMP [CHEM] AM MAGNESIUM [CHEM] AM - Plan Plan:: Hypertensive emergency, improved * Appears patient had a significantly elevated blood pressure on arrival of EMS that may have been causing some altered mental status. * There is hard to determine because of the Ativan her current mental status. We will continue to follow closely. * Family does not want aggressive management at this time, therefore we'll hold off on MRI of the brain. * Patient has no focal deficits and is able to swallow pills and clear liquids. * Restart home meds and even before her home meds were given her blood pressure was down to 140 systolic * Increased lisinopril dosing * Added 5mg norvasc daily * Per family her BP normally runs in the 170's. Congestive heart failure * Ejection fraction from myocardial perfusion scan in 2013 was 30%. * Continue Bumex, lisinopril, and atenolol. Dementia * Patient clearly has worsening of her dementia. * She will need care home placement. * Counseled the family that she may have difficulty in the evening with ing. Anxiety * Continue sertraline 100 mg a day. * Continue lorazepam 0.25 mg at breakfast and lunch Paroxysmal A. fib * Continue beta carmen and Eliquis * ECG continues to show normal sinus rhythm S/P Hypomagnesemia * Magnesium 1.5 -->1.9 * Supplemented PT, OT, and discharge planning Length of stay anticipated 3 days CODE STATUS: DNR/DNI VTE prophylaxis with Eliquis Likely discharge tomorrow AM to [facility] with Dr. Pedro accepting.
[2018-11-29] MEDS: LORazepam 0.5 MG Tab PO SCH ×2 (09:05→13:05)
[2018-11-29] MEDS: Bumetanide 1 MG Tab PO SCH (09:05)
[2018-11-29] MEDS: Sertraline 50 MG Tab PO SCH (09:06)
[2018-11-29] MEDS: Acetaminophen 325 MG Tab PO PRN ×2 (09:06→20:32)
[2018-11-29] MEDS: Lisinopril 20 MG Tab PO SCH (09:08)
[2018-11-29] MEDS: Atenolol 50 MG Tab PO SCH (09:08)
[2018-11-29] MEDS: Apixaban 5 MG Tab PO SCH ×3 (09:08→21:39)
[2018-11-29] MEDS: Fluticasone Propionate Nasal Spray 16 GM Bottle NAS SCH ×2 (09:09→21:35)
[2018-11-29] MEDS: Triamcinolone Acetonide 0.1% Crm 15 GM Tube TOP SCH ×2 (09:09→21:35)
[2018-11-29] MEDS: amLODIPine 5 MG Tab PO SCH (09:09)
[2018-11-29] MEDS ORDERED: Polyethylene Glycol 3350 Powder 17 GM Packet PO PRN (09:40)
[2018-11-29] MEDS: Melatonin 3 MG Tab PO SCH ×2 (20:34→21:40)
[2018-11-29] MEDS: Aspirin 81 MG Tab.Chew PO SCH (20:34)
[2018-11-29] MEDS: Potassium Chloride 10 MEQ Tab.ER PO SCH ×2 (20:35→21:42)
[2018-11-29] MEDS ORDERED: Haloperidol Lactate 5 MG/ML SDV IVPUSH ONE ×2 (21:20→21:43)
[2018-11-29] MEDS ORDERED: Haloperidol Lactate 5 MG/ML SDV ONE (21:24)
[2018-11-30] MEDS: Pantoprazole 40 MG Tab.CR PO SCH (06:16)
[2018-11-30] MEDS ORDERED: Bisacodyl 10 MG Supp RECTAL ONE (06:45)
--- NOTE | 2018-11-30 08:34 | PCM.PN ---
- General Info Date of Service: 11/30/18 Admission Dx/Problem (Free Text): Admission Diagnosis/Problem Admission Diagnosis/Problem Chest pain Subjective Update: 11/28/18: In to see Gunjan. She is lying in bed. She reports she feels pretty good. She is pleasantly confused. She is onboard with the plan for discharge to [facility] and does tell me this when i was asking about needing more help at home. Her magnesium was low and was supplemented. No other nursing or patient concerns. 11/29/18: In to see Gunjan. She is sitting up in the chair. Her confusion is much worse today but she is still very pleasant and able to be re-directed. Nursing reports she did not sleep much overnight. No nursing concerns. Her labs today are stable. She reports she feels weaker today than yesterday. PT reported similar patient concerns. She remains pain free. Hopeful for discharge tomorrow AM. 11/30/18: Gunjan had a rough night. Will defer to Dr. Cohen and Nursing notes for details. She continues to be confused and today has been reporting hallucinations. She is a 1:1 and family has been very involved. Dr. Pacheco was consulted and will be adjusting her home medications. She has had very minimal sleep over the course of her admission. Labs remain stable. BP has improved. Family meeting was had with Edna-charge nurse, Diana-social services, Howard Mendosa PA-C, and multiple family members. They were updated on plan and developments with psychiatric concerns. They were also updated on how this would affect her placement. All questions were answered. We have been attempting to allow her to sleep today. Functional Status: Reports: Pain Controlled, Tolerating Diet, Ambulating, Urinating, New Symptoms - Review of Systems General: Reports: Weakness. Denies: Fever, Chills HEENT: Reports: No Symptoms Pulmonary: Reports: No Symptoms. Denies: Shortness of Breath, Pleuritic Chest Pain, Cough, Sputum, Wheezing Cardiovascular: Reports: No Symptoms. Denies: Chest Pain Gastrointestinal: Reports: No Symptoms. Denies: Abdominal Pain, Constipation, Diarrhea, Nausea, Vomiting Genitourinary: Reports: No Symptoms. Denies: Pain Musculoskeletal: Reports: No Symptoms Skin: Reports: No Symptoms. Denies: Cyanosis Neurological: Reports: Confusion, Headache (chronic mild ). Denies: Dizziness Psychiatric: Reports: Confusion, Anxiety, Hallucinations. Denies: Agitation - Patient Data Vitals - Most Recent: Last Vital Signs Temp 97.3 F 11/30/18 05:07 Pulse 82 11/30/18 05:07 Resp 14 11/30/18 05:07 BP 172/112 H 11/30/18 05:09 Pulse Ox 94 L 11/30/18 05:07 Weight - Most Recent: 165 lb 1.6 oz I&O - Last 24 Hours: Intake & Output 11/29/18 11/30/18 11/30/18 22:59 06:59 14:59 Intake Total 600 370 Output Total 950 800 Balance -350 -430 Lab Results Last 24 Hours: Laboratory Results - last 24 hr 11/30/18 Range/Units 05:20 Sodium 140 (136-145) mEq/L Potassium 3.5 (3.5-5.1) mEq/L Chloride 101 (98-107) mEq/L Carbon Dioxide 26 (21-32) mEq/L Anion Gap 16.5 H (5-15) BUN 15 (7-18) mg/dL Creatinine 1.0 (0.55-1.02) mg/dL Est Cr Clr Drug Dosing 27.39 mL/min Estimated GFR (MDRD) 52 (>60) mL/min BUN/Creatinine Ratio 15.0 (14-18) Glucose 117 H (83-115) mg/dL Calcium 9.1 (8.5-10.1) mg/dL Magnesium 1.8 (1.8-2.4) mg/dl Med Orders - Current: Current Medications Acetaminophen (Tylenol) 650 mg PO Q4H PRN PRN Reason: Pain (Mild 1-3)/fever Last Admin: 11/29/18 09:06 Dose: 650 mg Amlodipine Besylate (Norvasc) 5 mg PO DAILY [facility] Last Admin: 11/29/18 09:09 Dose: 5 mg Apixaban (Eliquis) 2.5 mg PO BID [facility] Aspirin (Aspirin) 81 mg PO BEDTIME [facility] Last Admin: 11/29/18 20:34 Dose: 81 mg Atenolol (Tenormin) 50 mg PO DAILY [facility] Last Admin: 11/29/18 09:08 Dose: 50 mg Bumetanide (Bumex) 0.5 mg PO DAILY [facility] Last Admin: 11/29/18 09:05 Dose: 0.5 mg Fluticasone Propionate (Flonase) 0 gm YESENIA BID [facility] Last Admin: 11/29/18 21:35 Dose: Not Given Lisinopril (Prinivil) 20 mg PO DAILY [facility] Last Admin: 11/29/18 09:08 Dose: 20 mg Loratadine (Claritin) 10 mg PO DAILY PRN PRN Reason: chronic rhinitis Last Admin: 11/27/18 12:24 Dose: 10 mg Lorazepam (Ativan) 0.25 mg PO BID@0800,1200 [facility] Last Admin: 11/29/18 13:05 Dose: 0.25 mg Melatonin (Melatonin) 3 mg PO BEDTIME [facility] Last Admin: 11/29/18 21:40 Dose: Not Given Pantoprazole Sodium (Protonix) 40 mg PO DAILY@0700 [facility] Last Admin: 11/30/18 06:16 Dose: 40 mg Polyethylene Glycol (Miralax) 17 gm PO DAILY PRN PRN Reason: Constipation Last Admin: 11/29/18 10:05 Dose: 17 gm Potassium Chloride (Klor-Con 10) 10 meq PO BEDTIME [facility] Last Admin: 11/29/18 21:42 Dose: Not Given Sertraline HCl (Zoloft) 100 mg PO DAILY [facility] Last Admin: 11/29/18 09:06 Dose: 100 mg Triamcinolone Acetonide (Triamcinolone Acetonide 0.1% Crm) 0 gm TOP BID [facility] Last Admin: 11/29/18 21:35 Dose: Not Given Discontinued Medications Apixaban (Eliquis) 2.5 mg PO BID [facility] Last Admin: 11/29/18 21:39 Dose: Not Given Aspirin (Aspirin) 324 mg PO ONETIME ONE Stop: 11/27/18 05:19 Last Admin: 11/27/18 05:23 Dose: Not Given Atenolol (Tenormin) 25 mg PO DAILY [facility] Last Admin: 11/27/18 09:46 Dose: Not Given Bisacodyl (Dulcolax) 10 mg RECTAL ONETIME ONE Stop: 11/30/18 06:46 Last Admin: 11/30/18 06:54 Dose: 10 mg Haloperidol Lactate (Haldol) 0.5 mg IVPUSH ONETIME ONE Stop: 11/29/18 21:21 Last Admin: 11/29/18 21:34 Dose: 0.5 mg Haloperidol Lactate (Haldol) Confirm Administered Dose 5 mg .ROUTE .STK-MED ONE Stop: 11/29/18 21:25 Last Admin: 11/29/18 21:36 Dose: Not Given Haloperidol Lactate (Haldol) 0.5 mg IVPUSH ONETIME ONE Stop: 11/29/18 21:44 Last Admin: 11/29/18 21:55 Dose: 0.5 mg Hydralazine HCl (Apresoline) 20 mg IVPUSH ONETIME ONE Stop: 11/28/18 11:41 Last Admin: 11/28/18 11:45 Dose: 20 mg Potassium Chloride 10 meq/ (Premix) 100 mls @ 100 mls/hr IV Q1H PARAG Stop: 11/27/18 11:29 Last Admin: 11/27/18 11:42 Dose: 100 mls/hr Magnesium Sulfate 2 gm/ Premix 50 mls @ 25 mls/hr IV ONETIME ONE Stop: 11/28/18 10:05 Last Admin: 11/28/18 09:17 Dose: 25 mls/hr Lisinopril (Prinivil) 10 mg PO DAILY [facility] Last Admin: 11/27/18 09:43 Dose: 10 mg Lisinopril (Prinivil) 10 mg PO ONETIME ONE Stop: 11/27/18 21:11 Last Admin: 11/27/18 21:54 Dose: 10 mg - Exam Quality Assessment: DVT Prophylaxis General: Alert, Cooperative, No Acute Distress. No: Oriented HEENT: Pupils Equal, Pupils Reactive, EOMI, Mucous Membr. Moist/[place] Neck: Supple, Trachea Midline Lungs: Clear to Auscultation, Normal Respiratory Effort Cardiovascular: Regular Rate, Regular Rhythm GI/Abdominal Exam: Normal Bowel Sounds, Soft, Non-Tender, No Distention, No Abnormal Bruit (Female) Exam: Deferred Back Exam: Normal Inspection, Full Range of Motion Extremities: Normal Inspection, Normal Range of Motion, Non-Tender, No Pedal Edema, Normal Capillary Refill Peripheral Pulses: 3+: Radial (L), Radial (R), Dorsalis Pedis (L), Dorsalis Pedis (R) Skin: Warm, Dry, Intact Neurological: No New Focal Deficit Psy/Mental Status: Alert, Anxious, Hallucinations - Problem List & Annotations (1) Hypomagnesemia SNOMED Code(s): 504073076 Code(s): E83.42 - HYPOMAGNESEMIA Status: Acute Priority: High Current Visit: Yes (2) Anxiety SNOMED Code(s): 12250915 Code(s): F41.9 - ANXIETY DISORDER, UNSPECIFIED Status: Acute Priority: High Current Visit: Yes (3) CHF (congestive heart failure) SNOMED Code(s): 57907915 Code(s): I50.9 - HEART FAILURE, UNSPECIFIED Status: Acute Priority: High Current Visit: Yes Qualifiers: Heart failure type: unspecified Heart failure chronicity: unspecified Qualified Code(s): I50.9 - Heart failure, unspecified (4) Chest pain SNOMED Code(s): 39171954 Code(s): R07.9 - CHEST PAIN, UNSPECIFIED Status: Acute Priority: High Current Visit: Yes Qualifiers: Chest pain type: unspecified Qualified Code(s): R07.9 - Chest pain, unspecified (5) Dementia SNOMED Code(s): 87771085 Code(s): F03.90 - UNSPECIFIED DEMENTIA WITHOUT BEHAVIORAL DISTURBANCE Status: Chronic Priority: Medium Current Visit: Yes Qualifiers: Dementia type: unspecified type Dementia behavioral disturbance: without behavioral disturbance Qualified Code(s): F03.90 - Unspecified dementia without behavioral disturbance (6) HTN (hypertension) SNOMED Code(s): 40295133 Code(s): I10 - ESSENTIAL (PRIMARY) HYPERTENSION Status: Chronic Priority : High Current Visit: Yes Qualifiers: Hypertension type: unspecified Qualified Code(s): I10 - Essential (primary ) hypertension (7) Hypokalemia SNOMED Code(s): 13874529 Code(s): E87.6 - HYPOKALEMIA Status: Acute Priority: Medium Current Visit: Yes (8) Acute psychosis SNOMED Code(s): 92434004, 89862478 Code(s): F23 - BRIEF PSYCHOTIC DISORDER Status: Acute Priority: High Current Visit: Yes - Problem List Review Problem List Initiated/Reviewed/Updated: Yes - My Orders Last 24 Hours: My Active Orders 11/29/18 09:00 amLODIPine [Norvasc] 5 mg PO DAILY 11/29/18 09:40 Polyethylene Glycol 3350 [MiraLAX] 17 gm PO DAILY PRN 11/30/18 08:12 Notify Provider Consults [RC] ASDIRECTED Consult to Physician [CONS] Routine 12/01/18 05:11 BASIC METABOLIC PANEL,BMP [CHEM] AM MAGNESIUM [CHEM] AM 12/02/18 05:11 BASIC METABOLIC PANEL,BMP [CHEM] AM MAGNESIUM [CHEM] AM - Plan Plan:: Hypertensive emergency, improved * Appears patient had a significantly elevated blood pressure on arrival of EMS that may have been causing some altered mental status. * There is hard to determine because of the Ativan her current mental status. We will continue to follow closely. * Family does not want aggressive management at this time, therefore we'll hold off on MRI of the brain. * Patient has no focal deficits and is able to swallow pills and clear liquids. * Restart home meds and even before her home meds were given her blood pressure was down to 140 systolic * Increased lisinopril dosing * Added 5mg norvasc daily * Per family her BP normally runs in the 170's. Congestive heart failure * Ejection fraction from myocardial perfusion scan in 2013 was 30%. * Continue Bumex, lisinopril, and atenolol. Dementia * Patient clearly has worsening of her dementia. * She will need fdc placement. * Counseled the family that she may have difficulty in the evening with sundowning. Anxiety * Continue sertraline 100 mg a day. * Continue lorazepam 0.25 mg at breakfast and lunch Paroxysmal A. fib * Continue beta carmen and Eliquis * ECG continues to show normal sinus rhythm Acute psychosis/d * Patient has had minimal sleep since admission * No changes to home psychiatric medications while here * Became violent on night of 11/29/18 - attempted to leave, pulled IV out, very confused * Family called and presented to assist in calming patient * Returned to pleasantly confused state on 11/30/18 S/P Hypomagnesemia * Magnesium 1.5 -->1.9 * Supplemented PT, OT, and discharge planning Length of stay anticipated 3 days CODE STATUS: DNR/DNI VTE prophylaxis with Eliquis Likely discharge tomorrow AM to [facility] with Dr. Pedro accepting.
[2018-11-30] MEDS: Acetaminophen 325 MG Tab PO PRN (08:48)
[2018-11-30] MEDS: Sertraline 50 MG Tab PO SCH (08:50)
[2018-11-30] MEDS: Apixaban 2.5 MG Tab PO SCH ×3 (08:50→20:48)
[2018-11-30] MEDS: LORazepam 0.5 MG Tab PO SCH ×4 (08:51→20:48)
[2018-11-30] MEDS: Atenolol 50 MG Tab PO SCH (08:56)
[2018-11-30] MEDS: Lisinopril 20 MG Tab PO SCH (08:56)
[2018-11-30] MEDS: amLODIPine 5 MG Tab PO SCH (08:58)
[2018-11-30] MEDS: Bumetanide 1 MG Tab PO SCH (08:58)
[2018-11-30] MEDS: Triamcinolone Acetonide 0.1% Crm 15 GM Tube TOP SCH ×2 (08:59→20:32)
--- NOTE | 2018-11-30 09:01 | PCM.SN ---
- Free Text/Narrative Note: Patient had a difficult night last night. I was at bedside last night off and on from 9:00 until 11:00. Patient was hallucinating, delirious, and aggressive. We made multiple attempts at redirecting her, but she still tried to walk out the emergency exit and set the alarm off. Ultimately we did have to give her Haldol 0.5 mg IV 2. Family was summoned and a son-in-law helped to sit by her bed and kept her calm the rest the night. Patient is doing much better this morning and is very pleasant. Patient has no focal deficits or other neurological changes.
[2018-11-30] MEDS: Fluticasone Propionate Nasal Spray 16 GM Bottle NAS SCH ×2 (09:30→20:31)
--- NOTE | 2018-11-30 17:24 | CONS ---
CONSULTING PHYSICIAN: Rohit Pacheco MD DATE OF CONSULTATION: 11/30/2018 This is a 60-minute inpatient telemedicine consult. Site where the services are provided to is [facility] in [place], [place]. Site where the services are provided from our offices is in [facility]. Length of time for this 60 minute inpatient telemedicine event is 60 minute. IDENTIFICATION: The patient is an 88-year-old female who was admitted to the Med/Surg Unit AT [facility] in [place], [place]. She is seen for psychiatric consultation per the request of the staff attending Dr. Cohen and his primary inpatient medical treatment team. The patient's family, her 2 daughters and [id number] and son-in-law are also present for the consult and also participated in the interview. CHIEF COMPLAINT: "I want to you." HISTORY OF PRESENT ILLNESS: The patient is an 88-year-old female who is admitted to the Inpatient Med/Surg Unit at [facility] on 11/27/2017. She is admitted as she was becoming increasingly unsteady at home and experiencing falls, and then, there was also concern that the patient was experiencing chest pain. Since she has been on the unit, the patient had been according to staff "pleasantly confused" until yesterday evening when she actually became combative on the unit. The patient had not been sleeping for the last few days since her inpatient admit. Prior to admission, staff is reporting the patient had been taking Ativan 0.25 mg t.i.d., but upon admission, she began only receiving Ativan 0.25 mg b.i.d. in the morning and afternoon and the evening dose was discontinued. When the patient became combative on the unit yesterday evening, she was giving two 0.5 mg doses of Haldol IV and this seemed to settle her down. At this point in time, the patient is experiencing visual hallucinosis and is pointing to things that are apparently in the room, but that the interview and the other individuals are not able to see. The patient is also making delusional statements and is not oriented to place or time. The patient's family is expressing concerns about what could be done to help with her current situation. They are opening to having the Ativan medication adjusted and continuing the Haldol low dose on an oral basis if possible and see if this resolves the patient's acute psychotic symptoms as well as calm her down and allow the patient to get some sleep at night. Medical workup is continuing to rule out any conditions that may be contributory to the patient's overall presentation such as an occult UTI that might be complicating her clinical situation. MEDICATIONS: At the time of admission, Ativan 0.25 mg t.i.d. and this was subsequently adjusted to 0.25 mg b.i.d. morning and afternoon. ALLERGIES: Patient is allergic to cephalosporins. PAST MEDICAL HISTORY: 1. Chest pain of unknown etiology. 2. Hypotension. 3. Loss of balance of unknown etiology. REVIEW OF SYSTEMS: Aside from cardiovascular and neuro, all other major organ systems are negative at this point in time for acute difficulties or complications. FAMILY PSYCHIATRIC AND CD HISTORY: None reported. PAST PSYCHIATRIC AND CD HISTORY: Essentially negative except for developing dementia condition and anxiety symptoms for which the patient was given Ativan. SOCIAL HISTORY: The patient is of the [place] area and her family are ranchers or farmers, who remained very close to the patient and supportive of the patient. MENTAL STATUS EXAM: The patient is an 88-year-old white female, in no apparent distress. Speech is of rambling nature, but of regular rate and rhythm. There is no abnormal motor movements or tics observed. The patient is not cognitively oriented. Psychomotor activity is within normal limits. Gait and station are not observed. This patient is lying in bed during the course of the interview. Mood is "okay." Affect is delusional and psychotic, but cooperative for the most part and in a pleasant presentation. There is no behavioral or stated evidence of acute suicidal or homicidal ideation. Again, thought processes are significant for psychotic symptoms and delusional symptoms. Thought processes are disorganized. However, there is no acute manic symptoms evident. Judgment and insight do appear impaired. Motivation for help is poor. VITALS: At time of presentation, 128/70, 66, 14, and 97.3 degrees. IMPRESSION: [place] I: 1. Psychosis, not otherwise specified. 2. Anxiety disorder, not otherwise specified. 3. Dementia, not otherwise specified. [place] II: None. [place] III: 1. History of blood pressure changes. 2. Chest pain of unknown etiology. 3. Neurologic issues involving balance. [place] IV: Severe. AXIS V: 50. PLAN: 1. Would recommend discontinuing Ativan during day. 2. Restart Ativan 0.25 mg at bedtime to help with sleep and relaxation in the ED. 3. Recommend Haldol 0.5 mg at bedtime to help with clarity of thought and elimination of psychotic symptoms during the evening time. 4. Other medications as dosed and prescribed by the patient's primary inpatient medical treatment team. 5. I would recommend that the patient's primary inpatient medical treatment team also continue their current medical workup to clear the patient of any other conditions such as an occult UTI that could be causing the patient's changes in mentation and worsening cognition. 6. We will continue to follow up with the patient on an as-needed basis while she remains on the inpatient Med/Surg Unit. 7. We will follow up with the patient sooner if any complications in the interim. 8. Recommend that when patient is medically stabilized and transferred to her new living facility, that she does follow up with outpatient psychiatry to assess overall functional efficacy of her recommended psychiatric medication regimen. 9. Crisis plan is in place. HUONG /[id number]
[2018-11-30] MEDS: Melatonin 3 MG Tab PO SCH ×2 (19:43→20:48)
[2018-11-30] MEDS: risperiDONE 0.5 MG Tab PO SCH ×2 (19:43→20:49)
[2018-11-30] MEDS: Potassium Chloride 10 MEQ Tab.ER PO SCH ×2 (19:44→20:48)
[2018-11-30] MEDS: Aspirin 81 MG Tab.Chew PO SCH ×2 (19:44→20:48)
[2018-11-30] MEDS ORDERED: Haloperidol 0.5 MG Tab PO SCH (21:00)
[2018-11-30] MEDS ORDERED: Haloperidol Lactate 5 MG/ML SDV IVPUSH ONE (21:41)
--- NOTE | 2018-12-01 06:21 | PCM.PN ---
- General Info Date of Service: 12/01/18 Admission Dx/Problem (Free Text): Admission Diagnosis/Problem Admission Diagnosis/Problem Chest pain Subjective Update: 11/28/18: In to see Gunjan. She is lying in bed. She reports she feels pretty good. She is pleasantly confused. She is onboard with the plan for discharge to [place] and does tell me this when i was asking about needing more help at home. Her magnesium was low and was supplemented. No other nursing or patient concerns. 11/29/18: In to see Gunjan. She is sitting up in the chair. Her confusion is much worse today but she is still very pleasant and able to be re-directed. Nursing reports she did not sleep much overnight. No nursing concerns. Her labs today are stable. She reports she feels weaker today than yesterday. PT reported similar patient concerns. She remains pain free. Hopeful for discharge tomorrow AM. 11/30/18: Gunjan had a rough night. Will defer to Dr. Cohen and Nursing notes for details. She continues to be confused and today has been reporting hallucinations. She is a 1:1 and family has been very involved. Dr. Pacheco was consulted and will be adjusting her home medications. She has had very minimal sleep over the course of her admission. Labs remain stable. BP has improved. Family meeting was had with Edna-charge nurse, Diana-psychologist social, Dr. Cohen, NED Lawrence, and multiple family members. They were updated on plan and developments with psychiatric concerns. They were also updated on how this would affect her placement. All questions were answered. We have been attempting to allow her to sleep today. 12/01/18: Gunjan had another restless night. She once again became angry and was trying to get out of bed several times, although much less than the day before. Dr. Cohen was contacted and gave orders for 1mg IV Haldol. She responded well to this and did sleep for awhile. Dr. Pacheco was contacted this AM by nursing to discuss medication changes. She has been pleasant today thus far but she continues to have auditory and visual hallucinations. While being examined she is up in the chair eating lunch. She is able to carry on a better conversation today over yesterday however she is still quite confused. Her potassium was low and was supplemented. Otherwise she remains medically stable. Functional Status: Reports: Pain Controlled, Tolerating Diet, Ambulating, Urinating. Denies: New Symptoms - Review of Systems General: Reports: No Symptoms. Denies: Fever, Weakness, Fatigue HEENT: Reports: No Symptoms. Denies: Sore Throat Pulmonary: Reports: No Symptoms. Denies: Shortness of Breath, Cough, Sputum, Wheezing Cardiovascular: Reports: No Symptoms. Denies: Chest Pain, Dyspnea on Exertion, Edema Gastrointestinal: Reports: No Symptoms. Denies: Abdominal Pain, Constipation, Diarrhea, Nausea, Vomiting Genitourinary: Reports: No Symptoms. Denies: Pain Musculoskeletal: Reports: No Symptoms Skin: Reports: No Symptoms Neurological: Reports: Confusion Psychiatric: Reports: Anxiety, Hallucinations (auditory and visual ). Denies: Confusion, Depression, Agitation, Suicidal Ideation - Patient Data Vitals - Most Recent: Last Vital Signs Temp 98.1 F 12/01/18 05:54 Pulse 71 12/01/18 05:54 Resp 18 12/01/18 05:54 BP 130/80 11/30/18 22:00 Pulse Ox 92 L 12/01/18 05:54 Weight - Most Recent: 168 lb I&O - Last 24 Hours: Intake & Output 11/30/18 11/30/18 12/01/18 14:59 22:59 06:59 Intake Total 240 400 200 Output Total 300 Balance 240 100 200 Lab Results Last 24 Hours: Laboratory Results - last 24 hr 11/30/18 Range/Units 05:20 Sodium 140 (136-145) mEq/L Potassium 3.5 (3.5-5.1) mEq/L Chloride 101 (98-107) mEq/L Carbon Dioxide 26 (21-32) mEq/L Anion Gap 16.5 H (5-15) BUN 15 (7-18) mg/dL Creatinine 1.0 (0.55-1.02) mg/dL Est Cr Clr Drug Dosing 27.39 mL/min Estimated GFR (MDRD) 52 (>60) mL/min BUN/Creatinine Ratio 15.0 (14-18) Glucose 117 H (83-115) mg/dL Calcium 9.1 (8.5-10.1) mg/dL Magnesium 1.8 (1.8-2.4) mg/dl Med Orders - Current: Current Medications Acetaminophen (Tylenol) 650 mg PO Q4H PRN PRN Reason: Pain (Mild 1-3)/fever Last Admin: 11/30/18 08:48 Dose: 650 mg Amlodipine Besylate (Norvasc) 5 mg PO DAILY [facility] Last Admin: 11/30/18 08:58 Dose: 5 mg Apixaban (Eliquis) 2.5 mg PO BID [facility] Last Admin: 11/30/18 20:48 Dose: Not Given Aspirin (Aspirin) 81 mg PO BEDTIME [facility] Last Admin: 11/30/18 20:48 Dose: Not Given Atenolol (Tenormin) 50 mg PO DAILY [facility] Last Admin: 11/30/18 08:56 Dose: 50 mg Bumetanide (Bumex) 0.5 mg PO DAILY [facility] Last Admin: 11/30/18 08:58 Dose: 0.5 mg Fluticasone Propionate (Flonase) 0 gm YESENIA BID [facility] Last Admin: 11/30/18 20:31 Dose: Not Given Lisinopril (Prinivil) 20 mg PO DAILY [facility] Last Admin: 11/30/18 08:56 Dose: 20 mg Loratadine (Claritin) 10 mg PO DAILY PRN PRN Reason: chronic rhinitis Last Admin: 11/27/18 12:24 Dose: 10 mg Lorazepam (Ativan) 0.25 mg PO BEDTIME [facility] Last Admin: 11/30/18 20:48 Dose: Not Given Melatonin (Melatonin) 3 mg PO BEDTIME [facility] Last Admin: 11/30/18 20:48 Dose: Not Given Pantoprazole Sodium (Protonix) 40 mg PO DAILY@0700 [facility] Last Admin: 11/30/18 06:16 Dose: 40 mg Polyethylene Glycol (Miralax) 17 gm PO DAILY PRN PRN Reason: Constipation Last Admin: 11/29/18 10:05 Dose: 17 gm Potassium Chloride (Klor-Con 10) 10 meq PO BEDTIME [facility] Last Admin: 11/30/18 20:48 Dose: Not Given Risperidone (Risperidal) 0.5 mg PO BEDTIME [facility] Last Admin: 11/30/18 20:49 Dose: Not Given Sertraline HCl (Zoloft) 100 mg PO DAILY [facility] Last Admin: 11/30/18 08:50 Dose: 100 mg Triamcinolone Acetonide (Triamcinolone Acetonide 0.1% Crm) 0 gm TOP BID [facility] Last Admin: 11/30/18 20:32 Dose: Not Given Discontinued Medications Apixaban (Eliquis) 2.5 mg PO BID [facility] Last Admin: 11/29/18 21:39 Dose: Not Given Aspirin (Aspirin) 324 mg PO ONETIME ONE Stop: 11/27/18 05:19 Last Admin: 11/27/18 05:23 Dose: Not Given Atenolol (Tenormin) 25 mg PO DAILY [facility] Last Admin: 11/27/18 09:46 Dose: Not Given Bisacodyl (Dulcolax) 10 mg RECTAL ONETIME ONE Stop: 11/30/18 06:46 Last Admin: 11/30/18 06:54 Dose: 10 mg Haloperidol (Haldol) 0.5 mg PO BEDTIME [facility] Haloperidol Lactate (Haldol) 0.5 mg IVPUSH ONETIME ONE Stop: 11/29/18 21:21 Last Admin: 11/29/18 21:34 Dose: 0.5 mg Haloperidol Lactate (Haldol) Confirm Administered Dose 5 mg .ROUTE .STK-MED ONE Stop: 11/29/18 21:25 Last Admin: 11/29/18 21:36 Dose: Not Given Haloperidol Lactate (Haldol) 0.5 mg IVPUSH ONETIME ONE Stop: 11/29/18 21:44 Last Admin: 11/29/18 21:55 Dose: 0.5 mg Haloperidol Lactate (Haldol) 1 mg IVPUSH ONETIME ONE Stop: 11/30/18 21:42 Last Admin: 11/30/18 21:49 Dose: 1 mg Hydralazine HCl (Apresoline) 20 mg IVPUSH ONETIME ONE Stop: 11/28/18 11:41 Last Admin: 11/28/18 11:45 Dose: 20 mg Potassium Chloride 10 meq/ (Premix) 100 mls @ 100 mls/hr IV Q1H [facility] Stop: 11/27/18 11:29 Last Admin: 11/27/18 11:42 Dose: 100 mls/hr Magnesium Sulfate 2 gm/ Premix 50 mls @ 25 mls/hr IV ONETIME ONE Stop: 11/28/18 10:05 Last Admin: 11/28/18 09:17 Dose: 25 mls/hr Lisinopril (Prinivil) 10 mg PO DAILY [facility] Last Admin: 11/27/18 09:43 Dose: 10 mg Lisinopril (Prinivil) 10 mg PO ONETIME ONE Stop: 11/27/18 21:11 Last Admin: 11/27/18 21:54 Dose: 10 mg Lorazepam (Ativan) 0.25 mg PO BID@0800,1200 [facility] Last Admin: 11/30/18 12:20 Dose: 0.25 mg - Exam Quality Assessment: DVT Prophylaxis General: Alert, Cooperative, No Acute Distress. No: Oriented HEENT: Pupils Equal, Pupils Reactive, EOMI, Mucous Membr. Moist/[place] Neck: Supple, Trachea Midline Lungs: Clear to Auscultation, Normal Respiratory Effort Cardiovascular: Regular Rate, Regular Rhythm GI/Abdominal Exam: Normal Bowel Sounds, Soft, Non-Tender, No Distention, No Abnormal Bruit (Female) Exam: Deferred Back Exam: Normal Inspection, Full Range of Motion Extremities: Normal Inspection, Normal Range of Motion, Non-Tender, No Pedal Edema, Normal Capillary Refill Peripheral Pulses: 2+: Radial (L), Radial (R), Dorsalis Pedis (L), Dorsalis Pedis (R) Skin: Warm, Dry, Intact Neurological: No New Focal Deficit Psy/Mental Status: Alert, Labile Mood, Hallucinations (auditory and visual ). No: Anxious, Depressed, Agitated - Problem List & Annotations (1) Hypomagnesemia SNOMED Code(s): 621619330 Code(s): E83.42 - HYPOMAGNESEMIA Status: Acute Priority: High Current Visit: Yes (2) Anxiety SNOMED Code(s): 13474931 Code(s): F41.9 - ANXIETY DISORDER, UNSPECIFIED Status: Acute Priority: High Current Visit: Yes (3) CHF (congestive heart failure) SNOMED Code(s): 57423756 Code(s): I50.9 - HEART FAILURE, UNSPECIFIED Status: Acute Priority: High Current Visit: Yes Qualifiers: Heart failure type: unspecified Heart failure chronicity: unspecified Qualified Code(s): I50.9 - Heart failure, unspecified (4) Chest pain SNOMED Code(s): 51983278 Code(s): R07.9 - CHEST PAIN, UNSPECIFIED Status: Acute Priority: High Current Visit: Yes Qualifiers: Chest pain type: unspecified Qualified Code(s): R07.9 - Chest pain, unspecified (5) Dementia SNOMED Code(s): 98609548 Code(s): F03.90 - UNSPECIFIED DEMENTIA WITHOUT BEHAVIORAL DISTURBANCE Status: Chronic Priority: Medium Current Visit: Yes Qualifiers: Dementia type: unspecified type Dementia behavioral disturbance: without behavioral disturbance Qualified Code(s): F03.90 - Unspecified dementia without behavioral disturbance (6) HTN (hypertension) SNOMED Code(s): 94821396 Code(s): I10 - ESSENTIAL (PRIMARY) HYPERTENSION Status: Chronic Priority : High Current Visit: Yes Qualifiers: Hypertension type: unspecified Qualified Code(s): I10 - Essential (primary ) hypertension (7) Hypokalemia SNOMED Code(s): 70406005 Code(s): E87.6 - HYPOKALEMIA Status: Acute Priority: Medium Current Visit: Yes (8) Acute psychosis SNOMED Code(s): 09446089, 15895268 Code(s): F23 - BRIEF PSYCHOTIC DISORDER Status: Acute Priority: High Current Visit: Yes - Problem List Review Problem List Initiated/Reviewed/Updated: Yes - My Orders Last 24 Hours: My Active Orders 11/30/18 08:12 Notify Provider Consults [RC] ASDIRECTED Consult to Physician [CONS] Routine 12/01/18 05:11 BASIC METABOLIC PANEL,BMP [CHEM] AM MAGNESIUM [CHEM] AM 12/02/18 05:11 BASIC METABOLIC PANEL,BMP [CHEM] AM MAGNESIUM [CHEM] AM - Plan Plan:: Hypertensive emergency, improved * Appears patient had a significantly elevated blood pressure on arrival of EMS that may have been causing some altered mental status. * There is hard to determine because of the Ativan her current mental status. We will continue to follow closely. * Family does not want aggressive management at this time, therefore we'll hold off on MRI of the brain. * Patient has no focal deficits and is able to swallow pills and clear liquids. * Restart home meds and even before her home meds were given her blood pressure was down to 140 systolic * Increased lisinopril dosing * Added 5mg norvasc daily * Per family her BP normally runs in the 170's. Congestive heart failure * Ejection fraction from myocardial perfusion scan in 2013 was 30%. * Continue Bumex, lisinopril, and atenolol. Dementia * Patient clearly has worsening of her dementia. * She will [facility]. * Counseled the family that she may have difficulty in the evening with sundowning. Anxiety * Continue sertraline 100 mg a day. * Stop lorazepam 0.25 mg at breakfast and lunch per Dr. Pacheco Paroxysmal A. fib * Continue beta carmen and Eliquis * ECG continues to show normal sinus rhythm Acute psychosis * Patient has had minimal sleep since admission * No changes to home psychiatric medications while here until 11/30/18 * Became violent on night of 11/29/18 and 11/30/18 - attempted to leave, pulled IV out, very confused * Family called and presented to assist in calming patient * Waxes and wanes - worse at night * Dr. Pacheco consulted - will be adjusting medications. S/P Hypomagnesemia * Magnesium 1.5 -->1.9 * Supplemented PT, OT, and discharge planning CODE STATUS: DNR/DNI VTE prophylaxis with Eliquis LOS >96HR pending further workup for pychosis, placement.
[2018-12-01] MEDS: Acetaminophen 325 MG Tab PO PRN ×3 (06:26→17:52)
[2018-12-01] MEDS: Pantoprazole 40 MG Tab.CR PO SCH (06:26)
[2018-12-01] MEDS: amLODIPine 5 MG Tab PO SCH (08:01)
[2018-12-01] MEDS: Atenolol 50 MG Tab PO SCH (08:01)
[2018-12-01] MEDS: Lisinopril 20 MG Tab PO SCH (08:17)
[2018-12-01] MEDS: Bumetanide 1 MG Tab PO SCH (08:17)
[2018-12-01] MEDS: Sertraline 50 MG Tab PO SCH (08:17)
[2018-12-01] MEDS: Apixaban 2.5 MG Tab PO SCH ×2 (08:17→20:07)
[2018-12-01] MEDS: Triamcinolone Acetonide 0.1% Crm 15 GM Tube TOP SCH ×2 (08:32→20:08)
[2018-12-01] MEDS: Fluticasone Propionate Nasal Spray 16 GM Bottle NAS SCH ×2 (08:32→20:08)
[2018-12-01] MEDS: Potassium Chloride 20 MEQ Tab.ER PO SCH ×2 (08:50→12:01)
[2018-12-01] MEDS: Haloperidol Lactate 2 MG/ML Oral Soln 15 ML Bottle PO SCH ×3 (11:17→20:08)
[2018-12-01] MEDS: Potassium Chloride 10 MEQ Tab.ER PO SCH (20:07)
[2018-12-01] MEDS: Aspirin 81 MG Tab.Chew PO SCH (20:07)
[2018-12-01] MEDS: Melatonin 3 MG Tab PO SCH (20:07)
[2018-12-01] MEDS ORDERED: Haloperidol Lactate 2 MG/ML Oral Soln 15 ML Bottle PO SCH (21:00)
[2018-12-02] MEDS: Acetaminophen 325 MG Tab PO PRN ×4 (05:36→19:27)
[2018-12-02] MEDS: Pantoprazole 40 MG Tab.CR PO SCH (06:01)
[2018-12-02] MEDS: Lisinopril 20 MG Tab PO SCH (08:03)
[2018-12-02] MEDS: Bumetanide 1 MG Tab PO SCH (08:04)
[2018-12-02] MEDS: Apixaban 2.5 MG Tab PO SCH ×2 (08:04→20:03)
[2018-12-02] MEDS: amLODIPine 5 MG Tab PO SCH (08:05)
[2018-12-02] MEDS: Sertraline 50 MG Tab PO SCH (08:05)
[2018-12-02] MEDS: Atenolol 50 MG Tab PO SCH (08:05)
[2018-12-02] MEDS: Haloperidol Lactate 2 MG/ML Oral Soln 15 ML Bottle PO SCH ×3 (08:09→20:03)
[2018-12-02] MEDS: Triamcinolone Acetonide 0.1% Crm 15 GM Tube TOP SCH ×2 (08:09→20:22)
[2018-12-02] MEDS: Fluticasone Propionate Nasal Spray 16 GM Bottle NAS SCH ×2 (08:09→20:22)
[2018-12-02] MEDS: Loratadine 10 MG Tab PO PRN (10:01)
--- NOTE | 2018-12-02 13:12 | PCM.PN ---
- General Info Date of Service: 12/02/18 Admission Dx/Problem (Free Text): 11/28/18: In to see Gunjan. She is lying in bed. She reports she feels pretty good. She is pleasantly confused. She is onboard with the plan for discharge to [place] and does tell me this when i was asking about needing more help at home. Her magnesium was low and was supplemented. No other nursing or patient concerns. 11/29/18: In to see Gunjan. She is sitting up in the chair. Her confusion is much worse today but she is still very pleasant and able to be re-directed. Nursing reports she did not sleep much overnight. No nursing concerns. Her labs today are stable. She reports she feels weaker today than yesterday. PT reported similar patient concerns. She remains pain free. Hopeful for discharge tomorrow AM. 11/30/18: Gunjan had a rough night. Will defer to Dr. Cohen and Nursing notes for details. She continues to be confused and today has been reporting hallucinations. She is a 1:1 and family has been very involved. Dr. Pacheco was consulted and will be adjusting her home medications. She has had very minimal sleep over the course of her admission. Labs remain stable. BP has improved. Family meeting was had with Edna-charge nurse, Diana-director social service, Howard Mendosa PA-C, and multiple family members. They were updated on plan and developments with psychiatric concerns. They were also updated on how this would affect her placement. All questions were answered. We have been attempting to allow her to sleep today. 12/01/18: Gunjan had another restless night. She once again became angry and was trying to get out of bed several times, although much less than the day before. Dr. Cohen was contacted and gave orders for 1mg IV Haldol. She responded well to this and did sleep for awhile. Dr. Pacheco was contacted this AM by nursing to discuss medication changes. She has been pleasant today thus far but she continues to have auditory and visual hallucinations. While being examined she is up in the chair eating lunch. She is able to carry on a better conversation today over yesterday however she is still quite confused. Her potassium was low and was supplemented. Otherwise she remains medically stable. 12/02/2018, no agitation overnight, feeling little weak, forgetful, tolerated haloperidol well. - Review of Systems Systems Review Comment:: General: Reports: No Symptoms. Denies: Fever, Weakness, Fatigue HEENT: Reports: No Symptoms. Denies: Sore Throat Pulmonary: Reports: No Symptoms. Denies: Shortness of Breath, Cough, Sputum, Wheezing Cardiovascular: Reports: No Symptoms. Denies: Chest Pain, Dyspnea on Exertion, Edema Gastrointestinal: Reports: No Symptoms. Denies: Abdominal Pain, Constipation, Diarrhea, Nausea, Vomiting Genitourinary: Reports: No Symptoms. Denies: Pain Musculoskeletal: Reports: No Symptoms Skin: Reports: No Symptoms Neurological: Reports: Confusion Psychiatric: Reports: Anxiety, Hallucinations (auditory and visual ). Denies: Confusion, Depression, Agitation, Suicidal Ideation - Patient Data Vitals - Most Recent: Last Vital Signs Temp 98.4 F 12/02/18 07:44 Pulse 82 12/02/18 08:05 Resp 12 12/02/18 07:44 BP 150/82 H 12/02/18 08:13 Pulse Ox 94 L 12/02/18 07:44 Weight - Most Recent: 163 lb 7 oz I&O - Last 24 Hours: Intake & Output 12/02/18 12/02/18 12/02/18 03:59 11:59 19:59 Intake Total 420 Balance 420 Lab Results Last 24 Hours: Laboratory Results - last 24 hr 12/02/18 12/02/18 Range/Units 05:05 05:05 WBC 5.58 (3.98-10.04) K/mm3 RBC 4.89 (3.98-5.22) M/mm3 Hgb 14.2 D (11.2-15.7) gm/L Hct 44.6 (34.1-44.9) % MCV 91.2 (79.4-94.8) fl MCH 29.0 (25.6-32.2) pg MCHC 31.8 L (32.2-35.5) g/dl RDW Std Deviation 52.7 H (36.4-46.3) fL Plt Count 194 (182-369) K/mm3 MPV 12.4 H (9.4-12.3) fl Neut % (Auto) 56.7 (34.0-71.1) % Lymph % (Auto) 26.2 (19.3-51.7) % [place] % (Auto) 12.9 H (4.7-12.5) % Eos % (Auto) 3.8 (0.7-5.8) Baso % (Auto) 0.2 (0.1-1.2) % Neut # (Auto) 3.17 (1.56-6.13) K/mm3 Lymph # (Auto) 1.46 (1.18-3.74) K/mm3 [place] # (Auto) 0.72 H (0.24-0.36) K/mm3 Eos # (Auto) 0.21 (0.04-0.36) K/mm3 Baso # (Auto) 0.01 (0.01-0.08) K/mm3 Sodium 143 (136-145) mEq/L Potassium 4.1 (3.5-5.1) mEq/L Chloride 106 (98-107) mEq/L Carbon Dioxide 27 (21-32) mEq/L Anion Gap 14.1 (5-15) BUN 22 H (7-18) mg/dL Creatinine 1.0 (0.55-1.02) mg/dL Est Cr Clr Drug Dosing 27.39 mL/min Estimated GFR (MDRD) 52 (>60) mL/min BUN/Creatinine Ratio 22.0 H (14-18) Glucose 91 (83-115) mg/dL Calcium 8.7 (8.5-10.1) mg/dL Magnesium 1.9 (1.8-2.4) mg/dl Med Orders - Current: Current Medications Acetaminophen (Tylenol) 650 mg PO Q4H PRN PRN Reason: Pain (Mild 1-3)/fever Last Admin: 12/02/18 10:02 Dose: 650 mg Amlodipine Besylate (Norvasc) 5 mg PO DAILY [facility] Last Admin: 12/02/18 08:05 Dose: 5 mg Apixaban (Eliquis) 2.5 mg PO BID [facility] Last Admin: 12/02/18 08:04 Dose: 2.5 mg Aspirin (Aspirin) 81 mg PO BEDTIME [facility] Last Admin: 12/01/18 20:07 Dose: 81 mg Atenolol (Tenormin) 50 mg PO DAILY [facility] Last Admin: 12/02/18 08:05 Dose: 50 mg Bumetanide (Bumex) 0.5 mg PO DAILY [facility] Last Admin: 12/02/18 08:04 Dose: 0.5 mg Fluticasone Propionate (Flonase) 0 gm YESENIA BID [facility] Last Admin: 12/02/18 08:09 Dose: Not Given Haloperidol Lactate (Haldol 2 Mg/Ml Soln) 1.25 mg PO TID [facility] Last Admin: 12/02/18 08:09 Dose: 1.25 mg Lisinopril (Prinivil) 20 mg PO DAILY [facility] Last Admin: 12/02/18 08:03 Dose: 20 mg Loratadine (Claritin) 10 mg PO DAILY PRN PRN Reason: chronic rhinitis Last Admin: 12/02/18 10:01 Dose: 10 mg Melatonin (Melatonin) 3 mg PO BEDTIME [facility] Last Admin: 12/01/18 20:07 Dose: 3 mg Pantoprazole Sodium (Protonix) 40 mg PO DAILY@0700 [facility] Last Admin: 12/02/18 06:01 Dose: 40 mg Polyethylene Glycol (Miralax) 17 gm PO DAILY PRN PRN Reason: Constipation Last Admin: 11/29/18 10:05 Dose: 17 gm Potassium Chloride (Klor-Con 10) 10 meq PO BEDTIME [facility] Last Admin: 12/01/18 20:07 Dose: 10 meq Sertraline HCl (Zoloft) 100 mg PO DAILY [facility] Last Admin: 12/02/18 08:05 Dose: 100 mg Triamcinolone Acetonide (Triamcinolone Acetonide 0.1% Crm) 0 gm TOP BID [facility] Last Admin: 12/02/18 08:09 Dose: Not Given Discontinued Medications Apixaban (Eliquis) 2.5 mg PO BID [facility] Last Admin: 11/29/18 21:39 Dose: Not Given Aspirin (Aspirin) 324 mg PO ONETIME ONE Stop: 11/27/18 05:19 Last Admin: 11/27/18 05:23 Dose: Not Given Atenolol (Tenormin) 25 mg PO DAILY [facility] Last Admin: 11/27/18 09:46 Dose: Not Given Bisacodyl (Dulcolax) 10 mg RECTAL ONETIME ONE Stop: 11/30/18 06:46 Last Admin: 11/30/18 06:54 Dose: 10 mg Haloperidol (Haldol) 0.5 mg PO BEDTIME [facility] Haloperidol Lactate (Haldol) 0.5 mg IVPUSH ONETIME ONE Stop: 11/29/18 21:21 Last Admin: 11/29/18 21:34 Dose: 0.5 mg Haloperidol Lactate (Haldol) Confirm Administered Dose 5 mg .ROUTE .STK-MED ONE Stop: 11/29/18 21:25 Last Admin: 11/29/18 21:36 Dose: Not Given Haloperidol Lactate (Haldol) 0.5 mg IVPUSH ONETIME ONE Stop: 11/29/18 21:44 Last Admin: 11/29/18 21:55 Dose: 0.5 mg Haloperidol Lactate (Haldol) 1 mg IVPUSH ONETIME ONE Stop: 11/30/18 21:42 Last Admin: 11/30/18 21:49 Dose: 1 mg Haloperidol Lactate (Haldol 2 Mg/Ml Soln) 1.25 mg PO BEDTIME [facility] Hydralazine HCl (Apresoline) 20 mg IVPUSH ONETIME ONE Stop: 11/28/18 11:41 Last Admin: 11/28/18 11:45 Dose: 20 mg Potassium Chloride 10 meq/ (Premix) 100 mls @ 100 mls/hr IV Q1H [facility] Stop: 11/27/18 11:29 Last Admin: 11/27/18 11:42 Dose: 100 mls/hr Magnesium Sulfate 2 gm/ Premix 50 mls @ 25 mls/hr IV ONETIME ONE Stop: 11/28/18 10:05 Last Admin: 11/28/18 09:17 Dose: 25 mls/hr Lisinopril (Prinivil) 10 mg PO DAILY [facility] Last Admin: 11/27/18 09:43 Dose: 10 mg Lisinopril (Prinivil) 10 mg PO ONETIME ONE Stop: 11/27/18 21:11 Last Admin: 11/27/18 21:54 Dose: 10 mg Lorazepam (Ativan) 0.25 mg PO BID@0800,1200 [facility] Last Admin: 11/30/18 12:20 Dose: 0.25 mg Lorazepam (Ativan) 0.25 mg PO BEDTIME [facility] Last Admin: 11/30/18 20:48 Dose: Not Given Potassium Chloride (Klor-Con M20) 40 meq PO Q4HR [facility] Stop: 12/01/18 13:01 Last Admin: 12/01/18 12:01 Dose: 40 meq Risperidone (Risperidal) 0.5 mg PO BEDTIME [facility] Last Admin: 11/30/18 20:49 Dose: Not Given - Exam Physical Findings Comments:: Quality Assessment: DVT Prophylaxis General: Alert, Cooperative, No Acute Distress. No: Oriented HEENT: Pupils Equal, Pupils Reactive, EOMI, Mucous Membr. Moist/[place] Neck: Supple, Trachea Midline Lungs: Clear to Auscultation, Normal Respiratory Effort Cardiovascular: Regular Rate, Regular Rhythm GI/Abdominal Exam: Normal Bowel Sounds, Soft, Non-Tender, No Distention, No Abnormal Bruit (Female) Exam: Deferred Back Exam: Normal Inspection, Full Range of Motion Extremities: Normal Inspection, Normal Range of Motion, Non-Tender, No Pedal Edema, Normal Capillary Refill Peripheral Pulses: 2+: Radial (L), Radial (R), Dorsalis Pedis (L), Dorsalis Pedis (R) Skin: Warm, Dry, Intact Neurological: No New Focal Deficit Psy/Mental Status: Alert, Labile Mood, Hallucinations (auditory and visual ). No: Anxious, Depressed, Agitated - Problem List Review Problem List Initiated/Reviewed/Updated: Yes - Plan Plan:: Hypertensive emergency, improved * Appears patient had a significantly elevated blood pressure on arrival of EMS that may have been causing some altered mental status. * There is hard to determine because of the Ativan her current mental status. We will continue to follow closely. * Family does not want aggressive management at this time, therefore we'll hold off on MRI of the brain. * Patient has no focal deficits and is able to swallow pills and clear liquids. * Restart home meds and even before her home meds were given her blood pressure was down to 140 systolic * Increased lisinopril dosing * Added 5mg norvasc daily * Per family her BP normally runs in the 170's. Congestive heart failure * Ejection fraction from myocardial perfusion scan in 2013 was 30%. * Continue Bumex, lisinopril, and atenolol. Dementia * Patient clearly has worsening of her dementia. * She will need fdc placement. * Counseled the family that she may have difficulty in the evening with . Anxiety * Continue sertraline 100 mg a day. * Stop lorazepam 0.25 mg at breakfast and lunch per Dr. Junior shaffer * Continue beta carmen and Eliquis * ECG continues to show normal sinus rhythm Acute psychosis * Patient has had minimal sleep since admission * No changes to home psychiatric medications while here until 11/30/18 * Became violent on night of 11/29/18 and 11/30/18 - attempted to leave, pulled IV out, very confused * Family called and presented to assist in calming patient * Waxes and wanes - worse at night, improved. S/P Hypomagnesemia * Magnesium * Supplemented PT, OT, and discharge planning CODE STATUS: DNR/DNI VTE prophylaxis with Eliquis
[2018-12-02] MEDS: Potassium Chloride 10 MEQ Tab.ER PO SCH (20:03)
[2018-12-02] MEDS: Aspirin 81 MG Tab.Chew PO SCH (20:03)
[2018-12-02] MEDS: Melatonin 3 MG Tab PO SCH (20:03)
[2018-12-03] MEDS: Pantoprazole 40 MG Tab.CR PO SCH (06:07)
[2018-12-03] MEDS: Loratadine 10 MG Tab PO PRN (06:07)
[2018-12-03] MEDS: Acetaminophen 325 MG Tab PO PRN ×3 (08:49→18:23)
[2018-12-03] MEDS: Sertraline 50 MG Tab PO SCH (08:53)
[2018-12-03] MEDS: amLODIPine 5 MG Tab PO SCH (08:53)
[2018-12-03] MEDS: Atenolol 50 MG Tab PO SCH (08:53)
[2018-12-03] MEDS: Lisinopril 20 MG Tab PO SCH (08:53)
[2018-12-03] MEDS: Bumetanide 1 MG Tab PO SCH (08:54)
[2018-12-03] MEDS: Apixaban 2.5 MG Tab PO SCH ×2 (08:54→20:03)
[2018-12-03] MEDS: Haloperidol Lactate 2 MG/ML Oral Soln 15 ML Bottle PO SCH ×3 (08:54→20:00)
[2018-12-03] MEDS: Fluticasone Propionate Nasal Spray 16 GM Bottle NAS SCH ×2 (08:54→20:05)
[2018-12-03] MEDS: Triamcinolone Acetonide 0.1% Crm 15 GM Tube TOP SCH ×2 (08:56→20:08)
--- NOTE | 2018-12-03 12:01 | PCM.PN ---
- General Info Date of Service: 12/03/18 Admission Dx/Problem (Free Text): 11/28/18: In to see Gunjan. She is lying in bed. She reports she feels pretty good. She is pleasantly confused. She is onboard with the plan for discharge to [place] and does tell me this when i was asking about needing more help at home. Her magnesium was low and was supplemented. No other nursing or patient concerns. 11/29/18: In to see Gunjan. She is sitting up in the chair. Her confusion is much worse today but she is still very pleasant and able to be re-directed. Nursing reports she did not sleep much overnight. No nursing concerns. Her labs today are stable. She reports she feels weaker today than yesterday. PT reported similar patient concerns. She remains pain free. Hopeful for discharge tomorrow AM. 11/30/18: Gunjan had a rough night. Will defer to Dr. Cohen and Nursing notes for details. She continues to be confused and today has been reporting hallucinations. She is a 1:1 and family has been very involved. Dr. Pacheoc was consulted and will be adjusting her home medications. She has had very minimal sleep over the course of her admission. Labs remain stable. BP has improved. Family meeting was had with Edna-charge nurse, Diana-social studies teacher, Howard Mendosa PA-C, and multiple family members. They were updated on plan and developments with psychiatric concerns. They were also updated on how this would affect her placement. All questions were answered. We have been attempting to allow her to sleep today. 12/01/18: Gunjan had another restless night. She once again became angry and was trying to get out of bed several times, although much less than the day before. Dr. Cohen was contacted and gave orders for 1mg IV Haldol. She responded well to this and did sleep for awhile. Dr. Pacheco was contacted this AM by nursing to discuss medication changes. She has been pleasant today thus far but she continues to have auditory and visual hallucinations. While being examined she is up in the chair eating lunch. She is able to carry on a better conversation today over yesterday however she is still quite confused. Her potassium was low and was supplemented. Otherwise she remains medically stable. 12/02/2018, no agitation overnight, feeling little weak, forgetful, tolerated haloperidol well. 12/03/2018, continues to improve pending SNF transfer, will adjust antihypertensives. - Patient Data Vitals - Most Recent: Last Vital Signs Temp 98.2 F 12/03/18 05:16 Pulse 89 12/03/18 08:53 Resp 16 12/03/18 05:16 BP 174/98 H 12/03/18 08:59 Pulse Ox 95 12/03/18 05:16 Weight - Most Recent: 161 lb 14.4 oz I&O - Last 24 Hours: Intake & Output 12/03/18 12/03/18 12/03/18 03:59 11:59 19:59 Intake Total 700 60 Output Total 1200 Balance -500 60 Med Orders - Current: Current Medications Acetaminophen (Tylenol) 650 mg PO Q4H PRN PRN Reason: Pain (Mild 1-3)/fever Last Admin: 12/03/18 08:49 Dose: 650 mg Amlodipine Besylate (Norvasc) 5 mg PO DAILY [facility] Last Admin: 12/03/18 08:53 Dose: 5 mg Apixaban (Eliquis) 2.5 mg PO BID [facility] Last Admin: 12/03/18 08:54 Dose: 2.5 mg Aspirin (Aspirin) 81 mg PO BEDTIME [facility] Last Admin: 12/02/18 20:03 Dose: 81 mg Atenolol (Tenormin) 50 mg PO DAILY [facility] Last Admin: 12/03/18 08:53 Dose: 50 mg Bumetanide (Bumex) 0.5 mg PO DAILY [facility] Last Admin: 12/03/18 08:54 Dose: 0.5 mg Docusate Sodium (Colace) 100 mg PO BID [facility] Fluticasone Propionate (Flonase) 0 gm YESENIA BID [facility] Last Admin: 12/03/18 08:54 Dose: Not Given Haloperidol Lactate (Haldol 2 Mg/Ml Soln) 1.25 mg PO TID [facility] Last Admin: 12/03/18 08:54 Dose: 1.25 mg Lisinopril (Prinivil) 20 mg PO DAILY [facility] Last Admin: 12/03/18 08:53 Dose: 20 mg Loratadine (Claritin) 10 mg PO DAILY PRN PRN Reason: chronic rhinitis Last Admin: 12/03/18 06:07 Dose: 10 mg Melatonin (Melatonin) 3 mg PO BEDTIME [facility] Last Admin: 12/02/18 20:03 Dose: 3 mg Pantoprazole Sodium (Protonix) 40 mg PO DAILY@0700 [facility] Last Admin: 12/03/18 06:07 Dose: 40 mg Polyethylene Glycol (Miralax) 17 gm PO DAILY PRN PRN Reason: Constipation Last Admin: 11/29/18 10:05 Dose: 17 gm Potassium Chloride (Klor-Con 10) 10 meq PO BEDTIME [facility] Last Admin: 12/02/18 20:03 Dose: 10 meq Sertraline HCl (Zoloft) 100 mg PO DAILY [facility] Last Admin: 12/03/18 08:53 Dose: 100 mg Triamcinolone Acetonide (Triamcinolone Acetonide 0.1% Crm) 0 gm TOP BID [facility] Last Admin: 12/03/18 08:56 Dose: Not Given Discontinued Medications Apixaban (Eliquis) 2.5 mg PO BID [facility] Last Admin: 11/29/18 21:39 Dose: Not Given Aspirin (Aspirin) 324 mg PO ONETIME ONE Stop: 11/27/18 05:19 Last Admin: 11/27/18 05:23 Dose: Not Given Atenolol (Tenormin) 25 mg PO DAILY [facility] Last Admin: 11/27/18 09:46 Dose: Not Given Bisacodyl (Dulcolax) 10 mg RECTAL ONETIME ONE Stop: 11/30/18 06:46 Last Admin: 11/30/18 06:54 Dose: 10 mg Haloperidol (Haldol) 0.5 mg PO BEDTIME [facility] Haloperidol Lactate (Haldol) 0.5 mg IVPUSH ONETIME ONE Stop: 11/29/18 21:21 Last Admin: 11/29/18 21:34 Dose: 0.5 mg Haloperidol Lactate (Haldol) Confirm Administered Dose 5 mg .ROUTE .STK-MED ONE Stop: 11/29/18 21:25 Last Admin: 11/29/18 21:36 Dose: Not Given Haloperidol Lactate (Haldol) 0.5 mg IVPUSH ONETIME ONE Stop: 11/29/18 21:44 Last Admin: 11/29/18 21:55 Dose: 0.5 mg Haloperidol Lactate (Haldol) 1 mg IVPUSH ONETIME ONE Stop: 11/30/18 21:42 Last Admin: 11/30/18 21:49 Dose: 1 mg Haloperidol Lactate (Haldol 2 Mg/Ml Soln) 1.25 mg PO BEDTIME [facility] Hydralazine HCl (Apresoline) 20 mg IVPUSH ONETIME ONE Stop: 11/28/18 11:41 Last Admin: 11/28/18 11:45 Dose: 20 mg Potassium Chloride 10 meq/ (Premix) 100 mls @ 100 mls/hr IV Q1H [facility] Stop: 11/27/18 11:29 Last Admin: 11/27/18 11:42 Dose: 100 mls/hr Magnesium Sulfate 2 gm/ Premix 50 mls @ 25 mls/hr IV ONETIME ONE Stop: 11/28/18 10:05 Last Admin: 11/28/18 09:17 Dose: 25 mls/hr Lisinopril (Prinivil) 10 mg PO DAILY [facility] Last Admin: 11/27/18 09:43 Dose: 10 mg Lisinopril (Prinivil) 10 mg PO ONETIME ONE Stop: 11/27/18 21:11 Last Admin: 11/27/18 21:54 Dose: 10 mg Lorazepam (Ativan) 0.25 mg PO BID@0800,1200 [facility] Last Admin: 11/30/18 12:20 Dose: 0.25 mg Lorazepam (Ativan) 0.25 mg PO BEDTIME [facility] Last Admin: 11/30/18 20:48 Dose: Not Given Potassium Chloride (Klor-Con M20) 40 meq PO Q4HR [facility] Stop: 12/01/18 13:01 Last Admin: 12/01/18 12:01 Dose: 40 meq Risperidone (Risperidal) 0.5 mg PO BEDTIME [facility] Last Admin: 11/30/18 20:49 Dose: Not Given - Problem List Review Problem List Initiated/Reviewed/Updated: Yes - My Orders Last 24 Hours: My Active Orders 12/03/18 10:35 Communication Order [RC] BID 12/03/18 21:00 Docusate Sodium [Colace] 100 mg PO BID - Plan Plan:: Hypertensive emergency, improved * Appears patient had a significantly elevated blood pressure on arrival of EMS that may have been causing some altered mental status. * There is hard to determine because of the Ativan her current mental status. We will continue to follow closely. * Family does not want aggressive management at this time, therefore we'll hold off on MRI of the brain. * Patient has no focal deficits and is able to swallow pills and clear liquids. * Restart home meds and even before her home meds were given her blood pressure was down to 140 systolic * Increased lisinopril dosing to 40 mg * Added 10mg norvasc daily * Per family her BP normally runs in the 170's. Congestive heart failure * Ejection fraction from myocardial perfusion scan in 2013 was 30%. * Continue Bumex, lisinopril, and atenolol. Dementia * Patient clearly has worsening of her dementia. * She will need shelter placement. * Counseled the family that she may have difficulty in the evening with sundowning. Anxiety * Continue sertraline 100 mg a day. * Stop lorazepam 0.25 mg at breakfast and lunch per Dr. Junior shaffre * Continue beta carmen and Eliquis * ECG continues to show normal sinus rhythm Acute psychosis * Patient has had minimal sleep since admission * No changes to home psychiatric medications while here until 11/30/18 * Became violent on night of 11/29/18 and 11/30/18 - attempted to leave, pulled IV out, very confused * Family called and presented to assist in calming patient * Waxes and wanes - worse at night, improved. S/P Hypomagnesemia * Magnesium * Supplemented PT, OT, and discharge planning CODE STATUS: DNR/DNI VTE prophylaxis with Eliquis
[2018-12-03] MEDS: Docusate Sodium 100 MG Cap PO SCH (20:02)
[2018-12-03] MEDS: Melatonin 3 MG Tab PO SCH (20:02)
[2018-12-03] MEDS: Aspirin 81 MG Tab.Chew PO SCH (20:03)
[2018-12-03] MEDS: Potassium Chloride 10 MEQ Tab.ER PO SCH (20:03)
[2018-12-04] MEDS: Pantoprazole 40 MG Tab.CR PO SCH (07:03)
--- NOTE | 2018-12-04 08:34 | PCM.PN ---
- General Info Date of Service: 12/04/18 Admission Dx/Problem (Free Text): 11/28/18: In to see Gunjan. She is lying in bed. She reports she feels pretty good. She is pleasantly confused. She is onboard with the plan for discharge to [place] and does tell me this when i was asking about needing more help at home. Her magnesium was low and was supplemented. No other nursing or patient concerns. 11/29/18: In to see Gunjan. She is sitting up in the chair. Her confusion is much worse today but she is still very pleasant and able to be re-directed. Nursing reports she did not sleep much overnight. No nursing concerns. Her labs today are stable. She reports she feels weaker today than yesterday. PT reported similar patient concerns. She remains pain free. Hopeful for discharge tomorrow AM. 11/30/18: Gunjan had a rough night. Will defer to Dr. Cohen and Nursing notes for details. She continues to be confused and today has been reporting hallucinations. She is a 1:1 and family has been very involved. Dr. Pacheco was consulted and will be adjusting her home medications. She has had very minimal sleep over the course of her admission. Labs remain stable. BP has improved. Family meeting was had with Edna-charge nurse, Diana-social sciences instructor, Howard Mendosa PA-C, and multiple family members. They were updated on plan and developments with psychiatric concerns. They were also updated on how this would affect her placement. All questions were answered. We have been attempting to allow her to sleep today. 12/01/18: Gunjan had another restless night. She once again became angry and was trying to get out of bed several times, although much less than the day before. Dr. Cohen was contacted and gave orders for 1mg IV Haldol. She responded well to this and did sleep for awhile. Dr. Pacheco was contacted this AM by nursing to discuss medication changes. She has been pleasant today thus far but she continues to have auditory and visual hallucinations. While being examined she is up in the chair eating lunch. She is able to carry on a better conversation today over yesterday however she is still quite confused. Her potassium was low and was supplemented. Otherwise she remains medically stable. 12/02/2018, no agitation overnight, feeling little weak, forgetful, tolerated haloperidol well. 12/03/2018, continues to improve pending SNF transfer, will adjust antihypertensives. Subjective Update: 11/28/18: In to see Gunjan. She is lying in bed. She reports she feels pretty good. She is pleasantly confused. She is onboard with the plan for discharge to [place] and does tell me this when i was asking about needing more help at home. Her magnesium was low and was supplemented. No other nursing or patient concerns. 11/29/18: In to see Gunjan. She is sitting up in the chair. Her confusion is much worse today but she is still very pleasant and able to be re-directed. Nursing reports she did not sleep much overnight. No nursing concerns. Her labs today are stable. She reports she feels weaker today than yesterday. PT reported similar patient concerns. She remains pain free. Hopeful for discharge tomorrow AM. 11/30/18: Gunjan had a rough night. Will defer to Dr. Cohen and Nursing notes for details. She continues to be confused and today has been reporting hallucinations. She is a 1:1 and family has been very involved. Dr. Pacheco was consulted and will be adjusting her home medications. She has had very minimal sleep over the course of her admission. Labs remain stable. BP has improved. Family meeting was had with Edna-charge nurse, Diana-social sciences instructor, Dr. Cohen, NED Lawrence, and multiple family members. They were updated on plan and developments with psychiatric concerns. They were also updated on how this would affect her placement. All questions were answered. We have been attempting to allow her to sleep today. 12/01/18: Gunjan had another restless night. She once again became angry and was trying to get out of bed several times, although much less than the day before. Dr. Cohen was contacted and gave orders for 1mg IV Haldol. She responded well to this and did sleep for awhile. Dr. Pacheco was contacted this AM by nursing to discuss medication changes. She has been pleasant today thus far but she continues to have auditory and visual hallucinations. While being examined she is up in the chair eating lunch. She is able to carry on a better conversation today over yesterday however she is still quite confused. Her potassium was low and was supplemented. Otherwise she remains medically stable. 12/02/2018, no agitation overnight, feeling little weak, forgetful, tolerated haloperidol well. 12/03/2018, continues to improve pending SNF transfer, will adjust antihypertensives. 12/04/18: In to see Gunjan. She is sitting up in the chair. She is doing very well. She has been able to hold a conversation for the most part and pleasantly confused. We have taken her off 1:1 and she is doing quite well. There have been no outbursts, agitation, or hallucinations. Family reports she is back to her baseline confusion. She has been eating well. Plan is for [facility] to come evaluate her today at 1400 with discharge tomorrow. She has passed her screening. Functional Status: Reports: Pain Controlled, Tolerating Diet, Ambulating, Urinating. Denies: New Symptoms - Review of Systems General: Reports: Weakness (Improving ). Denies: Fever, Chills HEENT: Reports: No Symptoms. Denies: Headaches, Sore Throat Pulmonary: Reports: No Symptoms. Denies: Shortness of Breath, Cough, Sputum, Wheezing Cardiovascular: Reports: No Symptoms. Denies: Chest Pain Gastrointestinal: Reports: No Symptoms. Denies: Abdominal Pain, Diarrhea, Nausea, Vomiting Genitourinary: Reports: No Symptoms Musculoskeletal: Reports: No Symptoms Skin: Reports: No Symptoms Neurological: Reports: Confusion (Baseline per family ) Psychiatric: Reports: No Symptoms. Denies: Mood Lability, Agitation - Patient Data Vitals - Most Recent: Last Vital Signs Temp 98.2 F 12/04/18 07:01 Pulse 84 12/04/18 07:01 Resp 16 12/04/18 07:01 BP 161/90 H 12/04/18 06:00 Pulse Ox 96 12/04/18 07:01 Weight - Most Recent: 160 lb I&O - Last 24 Hours: Intake & Output 12/03/18 12/04/18 12/04/18 22:59 06:59 14:59 Intake Total 800 500 Output Total 2100 600 Balance -1300 -100 Med Orders - Current: Current Medications Acetaminophen (Tylenol) 650 mg PO Q4H PRN PRN Reason: Pain (Mild 1-3)/fever Last Admin: 12/03/18 18:23 Dose: 650 mg Amlodipine Besylate (Norvasc) 10 mg PO DAILY [facility] Apixaban (Eliquis) 2.5 mg PO BID [facility] Last Admin: 12/03/18 20:03 Dose: 2.5 mg Aspirin (Aspirin) 81 mg PO BEDTIME [facility] Last Admin: 12/03/18 20:03 Dose: 81 mg Atenolol (Tenormin) 50 mg PO DAILY [facility] Last Admin: 12/03/18 08:53 Dose: 50 mg Bumetanide (Bumex) 0.5 mg PO DAILY [facility] Last Admin: 12/03/18 08:54 Dose: 0.5 mg Docusate Sodium (Colace) 100 mg PO BID [facility] Last Admin: 12/03/18 20:02 Dose: 100 mg Fluticasone Propionate (Flonase) 0 gm YESENIA BID [facility] Last Admin: 12/03/18 20:05 Dose: 1 spray Haloperidol Lactate (Haldol 2 Mg/Ml Soln) 1.25 mg PO TID [facility] Last Admin: 12/03/18 20:00 Dose: 1.25 mg Lisinopril (Prinivil) 40 mg PO DAILY [facility] Loratadine (Claritin) 10 mg PO DAILY PRN PRN Reason: chronic rhinitis Last Admin: 12/03/18 06:07 Dose: 10 mg Melatonin (Melatonin) 3 mg PO BEDTIME [facility] Last Admin: 12/03/18 20:02 Dose: 3 mg Pantoprazole Sodium (Protonix) 40 mg PO DAILY@0700 [facility] Last Admin: 12/04/18 07:03 Dose: 40 mg Polyethylene Glycol (Miralax) 17 gm PO DAILY PRN PRN Reason: Constipation Last Admin: 11/29/18 10:05 Dose: 17 gm Potassium Chloride (Klor-Con 10) 10 meq PO BEDTIME [facility] Last Admin: 12/03/18 20:03 Dose: 10 meq Sertraline HCl (Zoloft) 100 mg PO DAILY [facility] Last Admin: 12/03/18 08:53 Dose: 100 mg Triamcinolone Acetonide (Triamcinolone Acetonide 0.1% Crm) 0 gm TOP BID [facility] Last Admin: 12/03/18 20:08 Dose: Not Given Discontinued Medications Amlodipine Besylate (Norvasc) 5 mg PO DAILY [facility] Last Admin: 12/03/18 08:53 Dose: 5 mg Apixaban (Eliquis) 2.5 mg PO BID [facility] Last Admin: 11/29/18 21:39 Dose: Not Given Aspirin (Aspirin) 324 mg PO ONETIME ONE Stop: 11/27/18 05:19 Last Admin: 11/27/18 05:23 Dose: Not Given Atenolol (Tenormin) 25 mg PO DAILY [facility] Last Admin: 11/27/18 09:46 Dose: Not Given Bisacodyl (Dulcolax) 10 mg RECTAL ONETIME ONE Stop: 11/30/18 06:46 Last Admin: 11/30/18 06:54 Dose: 10 mg Haloperidol (Haldol) 0.5 mg PO BEDTIME [facility] Haloperidol Lactate (Haldol) 0.5 mg IVPUSH ONETIME ONE Stop: 11/29/18 21:21 Last Admin: 11/29/18 21:34 Dose: 0.5 mg Haloperidol Lactate (Haldol) Confirm Administered Dose 5 mg .ROUTE .STK-MED ONE Stop: 11/29/18 21:25 Last Admin: 11/29/18 21:36 Dose: Not Given Haloperidol Lactate (Haldol) 0.5 mg IVPUSH ONETIME ONE Stop: 11/29/18 21:44 Last Admin: 11/29/18 21:55 Dose: 0.5 mg Haloperidol Lactate (Haldol) 1 mg IVPUSH ONETIME ONE Stop: 11/30/18 21:42 Last Admin: 11/30/18 21:49 Dose: 1 mg Haloperidol Lactate (Haldol 2 Mg/Ml Soln) 1.25 mg PO BEDTIME [facility] Hydralazine HCl (Apresoline) 20 mg IVPUSH ONETIME ONE Stop: 11/28/18 11:41 Last Admin: 11/28/18 11:45 Dose: 20 mg Potassium Chloride 10 meq/ (Premix) 100 mls @ 100 mls/hr IV Q1H [facility] Stop: 11/27/18 11:29 Last Admin: 11/27/18 11:42 Dose: 100 mls/hr Magnesium Sulfate 2 gm/ Premix 50 mls @ 25 mls/hr IV ONETIME ONE Stop: 11/28/18 10:05 Last Admin: 11/28/18 09:17 Dose: 25 mls/hr Lisinopril (Prinivil) 10 mg PO DAILY [facility] Last Admin: 11/27/18 09:43 Dose: 10 mg Lisinopril (Prinivil) 10 mg PO ONETIME ONE Stop: 11/27/18 21:11 Last Admin: 11/27/18 21:54 Dose: 10 mg Lisinopril (Prinivil) 20 mg PO DAILY [facility] Last Admin: 12/03/18 08:53 Dose: 20 mg Lorazepam (Ativan) 0.25 mg PO BID@0800,1200 [facility] Last Admin: 11/30/18 12:20 Dose: 0.25 mg Lorazepam (Ativan) 0.25 mg PO BEDTIME [facility] Last Admin: 11/30/18 20:48 Dose: Not Given Potassium Chloride (Klor-Con M20) 40 meq PO Q4HR [facility] Stop: 12/01/18 13:01 Last Admin: 12/01/18 12:01 Dose: 40 meq Risperidone (Risperidal) 0.5 mg PO BEDTIME [facility] Last Admin: 11/30/18 20:49 Dose: Not Given - Exam Quality Assessment: DVT Prophylaxis General: Alert, Cooperative, No Acute Distress. No: Oriented HEENT: Pupils Equal, Pupils Reactive, EOMI, Mucous Membr. Moist/[place] Neck: Supple, Trachea Midline, No JVD Lungs: Clear to Auscultation, Normal Respiratory Effort Cardiovascular: Regular Rate, Regular Rhythm GI/Abdominal Exam: Normal Bowel Sounds, Soft, Non-Tender, No Organomegaly, No Distention (Female) Exam: Deferred Back Exam: Normal Inspection, Full Range of Motion Extremities: Normal Inspection, Normal Range of Motion, Non-Tender, No Pedal Edema, Normal Capillary Refill Peripheral Pulses: 2+: Radial (L), Radial (R), Dorsalis Pedis (L), Dorsalis Pedis (R) Skin: Warm, Dry, Intact Neurological: No New Focal Deficit Psy/Mental Status: Alert - Problem List & Annotations (1) Hypomagnesemia SNOMED Code(s): 847454985 Code(s): E83.42 - HYPOMAGNESEMIA Status: Resolved Priority: High Current Visit: Yes (2) Anxiety SNOMED Code(s): 03194340 Code(s): F41.9 - ANXIETY DISORDER, UNSPECIFIED Status: Acute Priority: High Current Visit: Yes (3) CHF (congestive heart failure) SNOMED Code(s): 79284876 Code(s): I50.9 - HEART FAILURE, UNSPECIFIED Status: Acute Priority: High Current Visit: Yes Qualifiers: Heart failure type: unspecified Heart failure chronicity: unspecified Qualified Code(s): I50.9 - Heart failure, unspecified (4) Chest pain SNOMED Code(s): 85666457 Code(s): R07.9 - CHEST PAIN, UNSPECIFIED Status: Acute Priority: High Current Visit: Yes Qualifiers: Chest pain type: unspecified Qualified Code(s): R07.9 - Chest pain, unspecified (5) Dementia SNOMED Code(s): 76870573 Code(s): F03.90 - UNSPECIFIED DEMENTIA WITHOUT BEHAVIORAL DISTURBANCE Status: Chronic Priority: Medium Current Visit: Yes Qualifiers: Dementia type: unspecified type Dementia behavioral disturbance: without behavioral disturbance Qualified Code(s): F03.90 - Unspecified dementia without behavioral disturbance (6) HTN (hypertension) SNOMED Code(s): 03513716 Code(s): I10 - ESSENTIAL (PRIMARY) HYPERTENSION Status: Chronic Priority : High Current Visit: Yes Qualifiers: Hypertension type: unspecified Qualified Code(s): I10 - Essential (primary ) hypertension (7) Hypokalemia SNOMED Code(s): 86496805 Code(s): E87.6 - HYPOKALEMIA Status: Resolved Priority: Medium Current Visit: Yes (8) Acute psychosis SNOMED Code(s): 93659124, 18279967 Code(s): F23 - BRIEF PSYCHOTIC DISORDER Status: Resolved Priority: High Current Visit: Yes - Problem List Review Problem List Initiated/Reviewed/Updated: Yes - Plan Plan:: Hypertensive emergency, improved * Appears patient had a significantly elevated blood pressure on arrival of EMS that may have been causing some altered mental status. * There is hard to determine because of the Ativan her current mental status. We will continue to follow closely. * Family does not want aggressive management at this time, therefore we'll hold off on MRI of the brain. * Patient has no focal deficits and is able to swallow pills and clear liquids. * Restart home meds and even before her home meds were given her blood pressure was down to 140 systolic * Increased lisinopril dosing to 40 mg * Added 10mg norvasc daily * Per family her BP normally runs in the 170's. Congestive heart failure * Ejection fraction from myocardial perfusion scan in 2013 was 30%. * Continue Bumex, lisinopril, and atenolol. Dementia * Patient clearly has worsening of her dementia. * She will need long term placement. * Counseled the family that she may have difficulty in the evening with sundowning. Anxiety * Continue sertraline 100 mg a day. * Stop lorazepam 0.25 mg at breakfast and lunch per Dr. Junior shaffer * Continue beta carmen and Eliquis * ECG continues to show normal sinus rhythm Acute psychosis * Patient has had minimal sleep for first several days * No changes to home psychiatric medications while here until 11/30/18 * Became violent on night of 11/29/18 and 11/30/18 - attempted to leave, pulled IV out, very confused * Family called and presented to assist in calming patient * Waxes and wanes - worse at night, improved. * No outbursts, anxiety, hallucinations since 11/30/18 S/P Hypomagnesemia * Magnesium * Supplemented PT, OT, and discharge planning CODE STATUS: DNR/DNI VTE prophylaxis with Eliquis LOS>96 Hr pending placement. Likely discharge 12/05/18 to [facility].
[2018-12-04] MEDS: Haloperidol Lactate 2 MG/ML Oral Soln 15 ML Bottle PO SCH ×3 (09:14→20:35)
[2018-12-04] MEDS: Fluticasone Propionate Nasal Spray 16 GM Bottle NAS SCH ×2 (09:17→20:32)
[2018-12-04] MEDS: Apixaban 2.5 MG Tab PO SCH ×2 (09:18→20:33)
[2018-12-04] MEDS: amLODIPine 10 MG Tab PO SCH (09:19)
[2018-12-04] MEDS: Lisinopril 20 MG Tab PO SCH (09:19)
[2018-12-04] MEDS: Bumetanide 1 MG Tab PO SCH (09:20)
[2018-12-04] MEDS: Docusate Sodium 100 MG Cap PO SCH ×2 (09:20→20:32)
[2018-12-04] MEDS: Atenolol 50 MG Tab PO SCH (09:20)
[2018-12-04] MEDS: Sertraline 50 MG Tab PO SCH (09:21)
[2018-12-04] MEDS: Triamcinolone Acetonide 0.1% Crm 15 GM Tube TOP SCH ×2 (09:21→20:38)
--- NOTE | 2018-12-04 11:29 | PCM.DCSUM1 ---
Discharge Summary - Hospital Course HPI Initial Comments: This 88-year-old female admitted through the emergency room and brought to the emergency room by EMS. Last night she called her daughter and told her that she was feeling sick and that she had vomited. Patient was having anxiety and sick feeling in her head. EMS was called and she was found to be hypertensive with systolic over 200. She was complaining of chest discomfort at that time and anxiety was thought to be part of the cause and she was given Ativan by EMS in route. This did help her chest pain and her blood pressure improved somewhat. On arrival to the emergency room workup was performed and troponins were negative. Apparently she had a similar episode a couple of weeks ago had a full cardiac workup. She has had episodes of low O2, but unknown how low. Patient has a history of lung cancer and recently had a CT angiogram performed. It appears her lung cancer has recurred. Patient does not want anything done about recurrence of her lung cancer and does not want any aggressive treatment for heart disease. She has a history of one stent 20 years ago. Also, her primary care provider has been encouraging family to look into long-term care for her. On she was going to move to a correction in [place]. Because of the patient's worsening anxiety he did recently increase her lorazepam from 0.25 mg twice a day to 3 times a day. The evening pills seem to cause her to fall, therefore family stopped the evening pill and she has had no more falls since then. Here she was found to have a low potassium of 3.0. Patient has a history of paroxysmal A. fib, hypertension, congestive heart failure, anxiety, and dementia. Diagnosis: Stroke: No - Discharge Data Discharge Date: 12/05/18 (Admit date: 11/27/18) Discharge Disposition: DC/Tfer to SNF 03 Condition: Good - Discharge Diagnosis/Problem(s) (1) Hypomagnesemia SNOMED Code(s): 820587145 ICD Code: E83.42 - HYPOMAGNESEMIA Status: Resolved Priority: High Current Visit: Yes (2) Anxiety SNOMED Code(s): 94061038 ICD Code: F41.9 - ANXIETY DISORDER, UNSPECIFIED Status: Chronic Priority : High Current Visit: Yes (3) CHF (congestive heart failure) SNOMED Code(s): 32976728 ICD Code: I50.9 - HEART FAILURE, UNSPECIFIED Status: Chronic Priority: High Current Visit: Yes Qualifiers: Heart failure type: unspecified Heart failure chronicity: unspecified Qualified Code(s): I50.9 - Heart failure, unspecified (4) Chest pain SNOMED Code(s): 66244347 ICD Code: R07.9 - CHEST PAIN, UNSPECIFIED Status: Resolved Priority: High Current Visit: Yes Qualifiers: Chest pain type: unspecified Qualified Code(s): R07.9 - Chest pain, unspecified (5) Dementia SNOMED Code(s): 14691916 ICD Code: F03.90 - UNSPECIFIED DEMENTIA WITHOUT BEHAVIORAL DISTURBANCE Status: Chronic Priority: Medium Current Visit: Yes Qualifiers: Dementia type: unspecified type Dementia behavioral disturbance: without behavioral disturbance Qualified Code(s): F03.90 - Unspecified dementia without behavioral disturbance (6) HTN (hypertension) SNOMED Code(s): 55017296 ICD Code: I10 - ESSENTIAL (PRIMARY) HYPERTENSION Status: Chronic Priority : High Current Visit: Yes Qualifiers: Hypertension type: unspecified Qualified Code(s): I10 - Essential (primary ) hypertension (7) Hypokalemia SNOMED Code(s): 32752448 ICD Code: E87.6 - HYPOKALEMIA Status: Resolved Priority: Medium Current Visit: Yes (8) Acute psychosis SNOMED Code(s): 81736962, 60041272 ICD Code: F23 - BRIEF PSYCHOTIC DISORDER Status: Resolved Priority: High Current Visit: Yes - Patient Summary/Data Consults: Consultations 11/27/18 10:28 Consult to Case Management/Print Washer [CONS] Routine 11/27/18 10:32 OT Evaluation and Treatment [CONS] Routine PT Evaluation and Treatment [CONS] Routine 11/30/18 08:12 Consult to Physician [CONS] Routine Labs Pending at D/C: None Recommended Follow-up Testing/Procedures: Follow-up with PCP within 7-10 days of discharge. Hospital Course: Hypertensive emergency, improved * Appears patient had a significantly elevated blood pressure on arrival of EMS that may have been causing some altered mental status. * There is hard to determine because of the Ativan her current mental status. We will continue to follow closely. * Family does not want aggressive management at this time, therefore we'll hold off on MRI of the brain. * Patient has no focal deficits and is able to swallow pills and clear liquids. * Restart home meds and even before her home meds were given her blood pressure was down to 140 systolic * Increased lisinopril dosing to 40 mg * Added 10mg norvasc daily * Per family her BP normally runs in the 170's. Congestive heart failure * Ejection fraction from myocardial perfusion scan in 2013 was 30%. * Continue Bumex, lisinopril, and atenolol. Dementia * Patient clearly has worsening of her dementia. * She will need correction placement. * Counseled the family that she may have difficulty in the evening with owning. Anxiety * Continue sertraline 100 mg a day. * Stop lorazepam 0.25 mg at breakfast and lunch per Dr. Junior shaffer * Continue beta carmen and Eliquis * ECG continues to show normal sinus rhythm Acute psychosis * Patient has had minimal sleep since admission * No changes to home psychiatric medications while here until 11/30/18 * Became violent on night of 11/29/18 and 11/30/18 - attempted to leave, pulled IV out, very confused * Family called and presented to assist in calming patient * Waxes and wanes - worse at night, improved. S/P Hypomagnesemia * Magnesium * Supplemented PT, OT, and discharge planning CODE STATUS: DNR/DNI VTE prophylaxis with Eliquis Gunjan was admitted with chest discomfort, anxiety, and placement. Cardiac workup was negative in the ED. She does appear to have a recurrence of lung cancer for which the patient and her family have decided to forego further testing and treatment. She also has a history of heart failure for which she is refusing aggressive treatment. Family and her PCP has been looking into long- term care for some time and the plan was already in motion to get her into the [place] [facility]. Prior to admission her lorazepam had been adjusted from TID to BID. This was reportedly adjusted due to frequent falls. She was noted to have hypokalemia in the ED and this was supplemented with good response. Infectious workup was grossly negative. Family has noted some worsening dementia and functioning at home. PT/OT were ordered. Magnesium was also supplemented. She was noted to be quite hypertensive with systolic BP in the 200s noted by EMS. This was likely exacerbated by her anxiety. Family notes longstanding history of HTN with systolic BP normally in the 170's. She did relatively well the first few nights. She was noted to be pleasantry confused, although she was not sleeping much. On the evening of 11/29/18 she did have an episode of agitation and was very confused. She pulled her IV out and attempted to leave. Family was contacted to attempt to calm her. She was given IV Haldol and was then able to be successfully returned to bed. She continued to have difficulty sleeping. Dr. Pacheco, psychiatry was then contacted and recommendations were given. She was again noted to have worsening confusion and become agitated on 11/30/18. She also was noted to have visual and auditory hallucinations. She then did begin to sleep. Her confusion returned to baseline and family noted this as well. Her home medications were adjusted as well with her new psychiatric medications. She has been receiving all these medications here with minimal complaints and good response to treatment. She will be discharged on home medications including PRN 650mg Tylenol, 10mg po daily Norvasc, 100mg daily Colace, 1.25mg PO Haldol solution TID, and 3mg PO melatonin at bedtime. Her BP has improved while here slightly and this will be deferred to the PCP for further work-up. Her mental status has remained stable and pleasant prior to discharge. She has had a BM. Family has been very involved in her care. She will be discharged to [facility] today. She should follow-up with her PCP within 7-10 days of discharge. Her BP should be taken daily and recorded in a journal. This journal should be brought with to all medical appointments. She should continue PT at SNF. - Patient Instructions Diet: Heart Healthy Diet Activity: As Tolerated Driving: Do Not Drive Notify Provider of: Fever, Increased Pain, Nausea and/or Vomiting - Discharge Plan *PRESCRIPTION DRUG MONITORING PROGRAM REVIEWED*: No *COPY OF PRESCRIPTION DRUG MONITORING REPORT IN PATIENT TASHIA: No Prescriptions/Med Rec: Acetaminophen [Tylenol] 650 mg PO Q4H PRN #20 tablet PRN Reason: Pain (Mild 1-3)/fever amLODIPine Besylate [Norvasc] 10 mg PO DAILY #20 tablet Docusate Sodium [Colace] 100 mg PO DAILY #20 cap Haloperidol Lactate [Haldol 2 MG/ML Soln] 1.25 mg PO TID #2 bottle Melatonin 3 mg PO BEDTIME #20 tablet Home Medications: Home Meds Apixaban [Eliquis] 2.5 mg PO BID 11/27/18 [History] Aspirin 81 mg PO BEDTIME 11/27/18 [History] Atenolol [Tenormin] 50 mg PO DAILY 11/27/18 [History] Bumetanide 0.5 mg PO DAILY 11/27/18 [History] Iftikhar Lac/Mag Cit/Pass Flw/Valer [Myocalm] 1 tab PO BEDTIME 11/27/18 [History] Lisinopril 40 mg PO BEDTIME 11/27/18 [History] Loratadine 10 mg PO DAILY PRN 11/27/18 [History] Magnesium 100 mg PO DAILY 11/27/18 [History] Non-Formulary Medication [NF Drug] 2,181 mg PO TID 11/27/18 [History] Omeprazole 20 mg PO DAILY 11/27/18 [History] Sertraline HCl 100 mg PO DAILY 11/27/18 [History] Triamcinolone Acetonide [Nasacort] 1 spray YESENIA BID 11/27/18 [History] Triamcinolone Acetonide [Triamcinolone Acetonide 0.1% Crm] 1 applic TOP BID [History] Acetaminophen [Tylenol] 650 mg PO Q4H PRN #20 tablet 12/04/18 [Rx] Docusate Sodium [Colace] 100 mg PO DAILY #20 cap 12/04/18 [Rx] Haloperidol Lactate [Haldol 2 MG/ML Soln] 1.25 mg PO TID #2 bottle 12/04/18 [Rx] Melatonin 3 mg PO BEDTIME #20 tablet 12/04/18 [Rx] amLODIPine Besylate [Norvasc] 10 mg PO DAILY #20 tablet 12/04/18 [Rx] Oxygen Therapy Mode: Room Air Patient Handouts: Understanding Your Risk for Falls, What You Need To Know About Antipsychotic Medicines, Nonspecific Chest Pain, [id number] Forms: ED Department Discharge Referrals: Sukh Pedro MD [Ordering Only Provider] - 12/13/18 11:00 am (Please follow-up with Dr Pedro at [facility]. ) - Discharge Summary/Plan Comment DC Time >30 min.: Yes (45 minutes ) - General Info Date of Service: 12/04/18 Admission Dx/Problem (Free Text: Chest pain Subjective Update: 11/28/18: In to see Gunjan. She is lying in bed. She reports she feels pretty good. She is pleasantly confused. She is onboard with the plan for discharge to [place] and does tell me this when i was asking about needing more help at home. Her magnesium was low and was supplemented. No other nursing or patient concerns. 11/29/18: In to see Gunjan. She is sitting up in the chair. Her confusion is much worse today but she is still very pleasant and able to be re-directed. Nursing reports she did not sleep much overnight. No nursing concerns. Her labs today are stable. She reports she feels weaker today than yesterday. PT reported similar patient concerns. She remains pain free. Hopeful for discharge tomorrow AM. 11/30/18: Gunjan had a rough night. Will defer to Dr. Cohen and Nursing notes for details. She continues to be confused and today has been reporting hallucinations. She is a 1:1 and family has been very involved. Dr. Pacheco was consulted and will be adjusting her home medications. She has had very minimal sleep over the course of her admission. Labs remain stable. BP has improved. Family meeting was had with Edna-charge nurse, Diana-socially responsible investment adviser, Dr. Cohen, NED Lawrence, and multiple family members. They were updated on plan and developments with psychiatric concerns. They were also updated on how this would affect her placement. All questions were answered. We have been attempting to allow her to sleep today. 12/01/18: Gunjan had another restless night. She once again became angry and was trying to get out of bed several times, although much less than the day before. Dr. Cohen was contacted and gave orders for 1mg IV Haldol. She responded well to this and did sleep for awhile. Dr. Pacheco was contacted this AM by nursing to discuss medication changes. She has been pleasant today thus far but she continues to have auditory and visual hallucinations. While being examined she is up in the chair eating lunch. She is able to carry on a better conversation today over yesterday however she is still quite confused. Her potassium was low and was supplemented. Otherwise she remains medically stable. 12/02/2018, no agitation overnight, feeling little weak, forgetful, tolerated haloperidol well. 12/03/2018, continues to improve pending SNF transfer, will adjust antihypertensives. 12/04/18: In to see Gunjan. She is sitting up in the chair. She is doing very well. She has been able to hold a conversation for the most part and pleasantly confused. We have taken her off 1:1 and she is doing quite well. There have been no outbursts, agitation, or hallucinations. Family reports she is back to her baseline confusion. She has been eating well. Plan is for [facility] to come evaluate her today at 1400 with discharge tomorrow. She has passed her screening. Functional Status: Reports: Pain Controlled, Tolerating Diet, Ambulating, Urinating. Denies: New Symptoms - Review of Systems General: Reports: Weakness (improving ). Denies: Fever, Fatigue, Chills HEENT: Reports: No Symptoms, Headaches (mild chronic ). Denies: Sore Throat Pulmonary: Reports: No Symptoms. Denies: Shortness of Breath, Pleuritic Chest Pain, Cough, Sputum, Wheezing Cardiovascular: Reports: No Symptoms. Denies: Chest Pain, Palpitations, Dyspnea on Exertion, Edema Gastrointestinal: Reports: No Symptoms. Denies: Abdominal Pain, Constipation, Diarrhea, Nausea, Vomiting Genitourinary: Reports: No Symptoms. Denies: Pain Musculoskeletal: Reports: Back Pain (chronic) Skin: Reports: No Symptoms Neurological: Reports: Confusion (Baseline ), Trouble Speaking. Denies: Difficulty Walking, Gait Disturbance Psychiatric: Reports: No Symptoms - Patient Data Vitals - Most Recent: Last Vital Signs Temp 98.2 F 12/04/18 07:01 Pulse 95 12/04/18 09:20 Resp 16 12/04/18 07:01 BP 152/81 H 12/04/18 09:20 Pulse Ox 96 12/04/18 07:01 Weight - Most Recent: 160 lb I&O - Last 24 hours: Intake & Output 12/03/18 12/04/18 12/04/18 22:59 06:59 14:59 Intake Total 800 500 120 Output Total 2100 600 Balance -1300 -100 120 Med Orders - Current: Current Medications Acetaminophen (Tylenol) 650 mg PO Q4H PRN PRN Reason: Pain (Mild 1-3)/fever Last Admin: 12/03/18 18:23 Dose: 650 mg Amlodipine Besylate (Norvasc) 10 mg PO DAILY [facility] Last Admin: 12/04/18 09:19 Dose: 10 mg Apixaban (Eliquis) 2.5 mg PO BID [facility] Last Admin: 12/04/18 09:18 Dose: 2.5 mg Aspirin (Aspirin) 81 mg PO BEDTIME [facility] Last Admin: 12/03/18 20:03 Dose: 81 mg Atenolol (Tenormin) 50 mg PO DAILY [facility] Last Admin: 12/04/18 09:20 Dose: 50 mg Bumetanide (Bumex) 0.5 mg PO DAILY [facility] Last Admin: 12/04/18 09:20 Dose: 0.5 mg Docusate Sodium (Colace) 100 mg PO BID [facility] Last Admin: 12/04/18 09:20 Dose: 100 mg Fluticasone Propionate (Flonase) 0 gm YESENIA BID [facility] Last Admin: 12/04/18 09:17 Dose: 1 spray Haloperidol Lactate (Haldol 2 Mg/Ml Soln) 1.25 mg PO TID [facility] Last Admin: 12/04/18 09:14 Dose: 1.25 mg Lisinopril (Prinivil) 40 mg PO DAILY [facility] Last Admin: 12/04/18 09:19 Dose: 40 mg Loratadine (Claritin) 10 mg PO DAILY PRN PRN Reason: chronic rhinitis Last Admin: 12/03/18 06:07 Dose: 10 mg Melatonin (Melatonin) 3 mg PO BEDTIME [facility] Last Admin: 12/03/18 20:02 Dose: 3 mg Pantoprazole Sodium (Protonix) 40 mg PO DAILY@0700 [facility] Last Admin: 12/04/18 07:03 Dose: 40 mg Polyethylene Glycol (Miralax) 17 gm PO DAILY PRN PRN Reason: Constipation Last Admin: 11/29/18 10:05 Dose: 17 gm Potassium Chloride (Klor-Con 10) 10 meq PO BEDTIME [facility] Last Admin: 12/03/18 20:03 Dose: 10 meq Sertraline HCl (Zoloft) 100 mg PO DAILY [facility] Last Admin: 12/04/18 09:21 Dose: 100 mg Triamcinolone Acetonide (Triamcinolone Acetonide 0.1% Crm) 0 gm TOP BID [facility] Last Admin: 12/04/18 09:21 Dose: 1 applic Discontinued Medications Amlodipine Besylate (Norvasc) 5 mg PO DAILY [facility] Last Admin: 12/03/18 08:53 Dose: 5 mg Apixaban (Eliquis) 2.5 mg PO BID [facility] Last Admin: 11/29/18 21:39 Dose: Not Given Aspirin (Aspirin) 324 mg PO ONETIME ONE Stop: 11/27/18 05:19 Last Admin: 11/27/18 05:23 Dose: Not Given Atenolol (Tenormin) 25 mg PO DAILY [facility] Last Admin: 11/27/18 09:46 Dose: Not Given Bisacodyl (Dulcolax) 10 mg RECTAL ONETIME ONE Stop: 11/30/18 06:46 Last Admin: 11/30/18 06:54 Dose: 10 mg Haloperidol (Haldol) 0.5 mg PO BEDTIME [facility] Haloperidol Lactate (Haldol) 0.5 mg IVPUSH ONETIME ONE Stop: 11/29/18 21:21 Last Admin: 11/29/18 21:34 Dose: 0.5 mg Haloperidol Lactate (Haldol) Confirm Administered Dose 5 mg .ROUTE .STK-MED ONE Stop: 11/29/18 21:25 Last Admin: 11/29/18 21:36 Dose: Not Given Haloperidol Lactate (Haldol) 0.5 mg IVPUSH ONETIME ONE Stop: 11/29/18 21:44 Last Admin: 11/29/18 21:55 Dose: 0.5 mg Haloperidol Lactate (Haldol) 1 mg IVPUSH ONETIME ONE Stop: 11/30/18 21:42 Last Admin: 11/30/18 21:49 Dose: 1 mg Haloperidol Lactate (Haldol 2 Mg/Ml Soln) 1.25 mg PO BEDTIME [facility] Hydralazine HCl (Apresoline) 20 mg IVPUSH ONETIME ONE Stop: 11/28/18 11:41 Last Admin: 11/28/18 11:45 Dose: 20 mg Potassium Chloride 10 meq/ (Premix) 100 mls @ 100 mls/hr IV Q1H [facility] Stop: 11/27/18 11:29 Last Admin: 11/27/18 11:42 Dose: 100 mls/hr Magnesium Sulfate 2 gm/ Premix 50 mls @ 25 mls/hr IV ONETIME ONE Stop: 11/28/18 10:05 Last Admin: 11/28/18 09:17 Dose: 25 mls/hr Lisinopril (Prinivil) 10 mg PO DAILY [facility] Last Admin: 11/27/18 09:43 Dose: 10 mg Lisinopril (Prinivil) 10 mg PO ONETIME ONE Stop: 11/27/18 21:11 Last Admin: 11/27/18 21:54 Dose: 10 mg Lisinopril (Prinivil) 20 mg PO DAILY [facility] Last Admin: 12/03/18 08:53 Dose: 20 mg Lorazepam (Ativan) 0.25 mg PO BID@0800,1200 [facility] Last Admin: 11/30/18 12:20 Dose: 0.25 mg Lorazepam (Ativan) 0.25 mg PO BEDTIME [facility] Last Admin: 11/30/18 20:48 Dose: Not Given Potassium Chloride (Klor-Con M20) 40 meq PO Q4HR [facility] Stop: 12/01/18 13:01 Last Admin: 12/01/18 12:01 Dose: 40 meq Risperidone (Risperidal) 0.5 mg PO BEDTIME [facility] Last Admin: 11/30/18 20:49 Dose: Not Given - Exam Quality Assessment: Reports: DVT Prophylaxis General: Reports: Alert, Cooperative, No Acute Distress. Denies: Oriented HEENT: Reports: Pupils Equal, Pupils Reactive, EOMI, Mucous Membr. Moist/Selz Neck: Reports: Supple, Trachea Midline Lungs: Reports: Clear to Auscultation, Normal Respiratory Effort Cardiovascular: Reports: Regular Rate, Regular Rhythm GI/Abdominal Exam: Normal Bowel Sounds, Soft, Non-Tender, No Organomegaly, No Distention (Female) Exam: Deferred Rectal (Female) Exam: Deferred Back Exam: Reports: Normal Inspection, Full Range of Motion Extremities: Normal Inspection, Normal Range of Motion, Non-Tender, No Pedal Edema, Normal Capillary Refill Skin: Reports: Warm, Dry, Intact Neurological: Reports: No New Focal Deficit Psy/Mental Status: Reports: Alert. Denies: Labile Mood, Agitated, Hallucinations
[2018-12-04] MEDS: Melatonin 3 MG Tab PO SCH (20:33)
[2018-12-04] MEDS: Potassium Chloride 10 MEQ Tab.ER PO SCH (20:33)
[2018-12-04] MEDS: Aspirin 81 MG Tab.Chew PO SCH (20:34)
[2018-12-05] MEDS: Pantoprazole 40 MG Tab.CR PO SCH (06:23)
[2018-12-05] MEDS: Haloperidol Lactate 2 MG/ML Oral Soln 15 ML Bottle PO SCH (08:15)
[2018-12-05] MEDS: Docusate Sodium 100 MG Cap PO SCH (08:15)
[2018-12-05] MEDS: amLODIPine 10 MG Tab PO SCH (08:15)
[2018-12-05] MEDS: Apixaban 2.5 MG Tab PO SCH (08:16)
[2018-12-05] MEDS: Lisinopril 20 MG Tab PO SCH (08:17)
[2018-12-05] MEDS: Bumetanide 1 MG Tab PO SCH (08:17)
[2018-12-05] MEDS: Atenolol 50 MG Tab PO SCH (08:17)
[2018-12-05] MEDS: Sertraline 50 MG Tab PO SCH (08:17)
[2018-12-05] MEDS: Triamcinolone Acetonide 0.1% Crm 15 GM Tube TOP SCH (08:18)
[2018-12-05] MEDS: Fluticasone Propionate Nasal Spray 16 GM Bottle NAS SCH (08:18)
== END 2018-12-05 08:46 | DRG 305 ==
LOC: JD.ED 04:35 → JD.MS 06:43 → UNDOADMIN 06:43 → JD.MS 06:48
PROVIDERS: ADMIT Family Medicine; ATTEND Family Medicine
DX: R07.9 Chest pain, unspecified (principal); I16.1 Hypertensive emergency; C34.31 Malignant neoplasm of lower lobe, right bronchus or lung; F23 Brief psychotic disorder; Z66 Do not resuscitate; I11.0 Hypertensive heart disease with heart failure; I50.9 Heart failure, unspecified; I48.0 Paroxysmal atrial fibrillation; Z79.01 Long term (current) use of anticoagulants; F03.90 Unspecified dementia, unspecified severity, without behavioral disturbance, psychotic disturbance, mood disturbance, and anxiety; R45.1 Restlessness and agitation; Z85.118 Personal history of other malignant neoplasm of bronchus and lung; Z91.81 History of falling; I44.7 Left bundle-branch block, unspecified; I25.2 Old myocardial infarction; F41.9 Anxiety disorder, unspecified; E87.6 Hypokalemia; E83.42 Hypomagnesemia; Z95.5 Presence of coronary angioplasty implant and graft; Z79.82 Long term (current) use of aspirin; Z79.899 Other long term (current) drug therapy; Z88.1 Allergy status to other antibiotic agents; Z88.8 Allergy status to other drugs, medicaments and biological substances
CPT/HCPCS: 36415; 71045; 71045-26; 80048; 80053; 81001; 83735; 84484; 85007; 85025; 85027; 85610; 85730; 93005; 93010; 97110-GP; 97116-GP; 97162-GP; 97165-GO; 97530-GO; 99283; 99285-25; A9270-GY; J0360; J1630; J3475; J3480